=== PATIENT | male | born 1940 | race Caucasian/White ===

== ENCOUNTER 2019-03-21 08:21 | Emergency (ER) | payer MEDICARE, MEDICAID ==
[2019-03-21 08:40] VITALS: BP 98/69
--- NOTE | 2019-03-21 08:56 | EDM.PDOC ---
ED HPI GENERAL MEDICAL PROBLEM - General Chief Complaint: General Stated Complaint: LEFT SIDE FACIAL SWELLING Time Seen by Provider: 03/21/19 08:40 Source of Information: Reports: Patient History Limitations: Reports: No Limitations - History of Present Illness INITIAL COMMENTS - FREE TEXT/NARRATIVE: Patient is 79-year-old gentleman who presents to the emergency department this morning with a complaint of left scalp swelling. Patient states yesterday afternoon he had a period of dizziness and multiple episodes of vomiting. His vomiting stopped at 1600 and dizziness resolved. When he woke this morning he noticed that he had swelling to his left scalp and face. Patient states he did have a small pimple on that area of his scalp prior to symptoms, however denies fever, any trauma, known insect bite, neck stiffness, blurry vision, dizziness, headache, or throat, chest pain, or shortness of breath. Onset: Gradual Duration: Day(s): Location: Reports: Head, Face Improves with: Reports: None Worsens with: Reports: None Context: Denies: Trauma Associated Symptoms: Reports: Headaches, Nausea/Vomiting. Denies: Cough, Diaphoresis, Fever/Chills, Rash, Seizure, Shortness of Breath, Syncope Left Head Pain Score (Numeric/FACES): 8 - Related Data Allergies Allergy/AdvReac Type Severity Reaction Status Date / Time hydrocodone Allergy Nausea and Verified 03/21/19 08:41 Vomiting tramadol Allergy Nausea and Verified 03/21/19 08:41 Vomiting Home Meds: Home Meds Naproxen Sodium [Aleve] 440 mg PO DAILY 11/29/13 [History] Aspirin 325 mg PO DAILY 03/21/19 [History] Cephalexin [Keflex] 500 mg PO TID #21 capsule 03/21/19 [Rx] Magnesium Potassium 1 tab PO BID 03/21/19 [History] Metoprolol Succinate [Toprol Xl] 25 mg PO DAILY 03/21/19 [History] Social & Family History - Tobacco Use Smoking Status *Q: Never Smoker Second Hand Smoke Exposure: No - Caffeine Use Caffeine Use: Reports: Soda, Tea - Recreational Drug Use Recreational Drug Use: No - Living Situation & Occupation Living situation: Reports: Single Occupation: Retired ED ROS GENERAL - Review of Systems Review Of Systems: ROS reveals no pertinent complaints other than HPI. Constitutional: Reports: No Symptoms. Denies: Fever HEENT: Reports: No Symptoms Respiratory: Reports: No Symptoms Cardiovascular: Reports: No Symptoms Endocrine: Reports: No Symptoms GI/Abdominal: Reports: Nausea, Vomiting : Reports: No Symptoms Musculoskeletal: Reports: No Symptoms Skin: Reports: Other (Pain and swelling of the left temporal area extending into maxilla and superior aspect of ear) Neurological: Reports: Dizziness, Headache Psychiatric: Reports: No Symptoms Hematologic/Lymphatic: Reports: No Symptoms Immunologic: Reports: No Symptoms ED EXAM, GENERAL - Physical Exam Exam: See Below Exam Limited By: No Limitations General Appearance: Alert, WD/WN, No Apparent Distress Eye Exam: Bilateral Eye: Normal Inspection Ears: Normal External Exam, Normal Canal, Normal TMs Ear Exam: Bilateral Ear: Auricle Normal, Canal Normal, TM normal Nose: Normal Inspection, Normal Mucosa, No Blood Throat/Mouth: Normal Inspection, Normal Oropharynx, No Airway Compromise. No: Inflammation Head: Facial Swelling, Facial Tenderness. No: Sinus Tenderness Neck: Lymphadenopathy (L), Lymphadenopathy (R) (Submandibular) Respiratory/Chest: No Respiratory Distress, Lungs Clear, Normal Breath Sounds, No Accessory Muscle Use, Chest Non-Tender Cardiovascular: Regular Rate, Rhythm GI/Abdominal: Normal Bowel Sounds, Soft, Non-Tender Extremities: Normal Inspection Neurological: Alert, Oriented, CN II-XII Intact, Normal Cognition, No Motor/ Sensory Deficits Psychiatric: Normal Affect, Normal Mood Skin Exam: Warm, Dry, Intact, Normal Color, No Rash, Other (Isolated single excoriation at superior aspect of edema. Minimal erythema. No ecchymosis. Mild edema extending from superior aspect of left ear through temporal area and partially into upper aspect of mandible.). No: Ecchymosis, Erythema Lymphatic: Adenopathy Course - Vital Signs Last Recorded V/S: Last Vital Signs Temp 98.2 F 03/21/19 08:35 Pulse 94 03/21/19 08:35 Resp 20 03/21/19 08:35 BP 98/69 03/21/19 08:35 Pulse Ox 92 L 03/21/19 08:35 - Orders/Labs/Meds Orders: Active Orders 24 hr Category Date Time Status CBC WITH AUTO DIFF [HEME] Stat Lab 03/21/19 08:40 Ordered SEDIMENTATION RATE MANUAL [HEME] Stat Lab 03/21/19 08:40 Ordered Labs: Laboratory Tests 03/21/19 03/21/19 Range/Units 08:50 08:50 WBC 7.45 (5.00-10.00) 10^3/uL RBC 4.99 (4.50-6.00) 10^6/uL Hgb 15.8 (13.0-17.0) g/dL Hct 44.8 (40.0-52.0) % MCV 89.8 (82.0-92.0) fL MCH 31.7 H (27.0-31.0) pg MCHC 35.3 (32.0-36.0) g/dL RDW 12.6 (11.5-14.5) % Plt Count 103 L (150-400) 10^3/uL MPV 10.7 H (7.4-10.4) fL Immature Gran % (Auto) 0.5 (0.0-5.0) % Neut % (Auto) 85.8 H (50.0-70.0) % Lymph % (Auto) 5.2 L (20.0-40.0) % [place] % (Auto) 8.2 H (2.0-8.0) % Eos % (Auto) 0.0 L (1.0-3.0) % Baso % (Auto) 0.3 (0.0-1.0) % Immature Gran # (Auto) 0.04 (0.00-0.50) 10^3/uL Neut # (Auto) 6.39 (2.50-7.00) 10^3/uL Lymph # (Auto) 0.39 L (1.00-4.00) 10^3/uL [place] # (Auto) 0.61 (0.10-0.80) 10^3/uL Eos # (Auto) 0.00 L (0.10-0.30) 10^3/uL Baso # (Auto) 0.02 (0.00-0.10) 10^3/uL Sodium 131 L D (136-145) mmol/L Potassium 3.8 (3.3-5.3) mmol/L Chloride 99 (98-115) mmol/L Carbon Dioxide 23.7 (21.0-32.0) mmol/L Anion Gap 12.1 (5-15) mmol/L BUN 26 H (6-25) mg/dL Creatinine 1.09 (0.51-1.17) mg/dL Est Cr Clr Drug Dosing 61.80 mL/min Estimated GFR (MDRD) > 60 mL/min Glucose 265 H (75 - 99) mg/dL Calcium 9.0 (8.7-10.3) mg/dL Total Bilirubin 2.8 H (0.2-1.0) mg/dL AST 28 (15-37) U/L ALT 21 (12-78) U/L Alkaline Phosphatase 112 (46-116) IU/L Total Protein 7.4 (6.4-8.2) g/dL Albumin 3.59 (3.00-4.80) g/dL Meds: Medications Discontinued Medications Generic Name Dose Route Start Last Admin Trade Name Freq PRN Reason Stop Dose Admin Cephalexin 1,000 mg 03/21/19 09:42 Keflex PO 03/21/19 09:43 ONETIME ONE - Radiology Interpretation Free Text/Narrative:: CT head shows left scalp soft tissue swelling with underlying osseous structures intact, no acute intracranial findings - Re-Assessments/Exams Free Text/Narrative Re-Assessment/Exam: 03/21/19 09:38 Patient afebrile, nontoxic appearing, vital signs stable. Denies nausea, dizziness, or headache. Patient given cephalexin in ER and prescription to go. Patient will be rechecked in 24 hours at the [facility]. Departure - Departure Time of Disposition: 09:46 Disposition: Home, Self-Care 01 Condition: Good Clinical Impression: Cellulitis Qualifiers: Site of cellulitis: face Qualified Code(s): L03.211 - Cellulitis of face - Discharge Information Prescriptions: Cephalexin [Keflex] 500 mg PO TID #21 capsule Instructions: Cellulitis, Adult, [id number] Referrals: Carolyne Caba MD [Primary Care Provider] - Forms: ED Department Discharge Additional Instructions: Follow-up at [facility] with Dr. Gallo tomorrow for recheck. Return to emergency department sooner if symptoms continue or worsen - My Orders Last 24 Hours: My Active Orders 03/21/19 08:40 CBC WITH AUTO DIFF [HEME] Stat SEDIMENTATION RATE MANUAL [HEME] Stat - Assessment/Plan Last 24 Hours: My Active Orders 03/21/19 08:40 CBC WITH AUTO DIFF [HEME] Stat SEDIMENTATION RATE MANUAL [HEME] Stat Assessment:: Facial Cellulitis Plan: Recheck tomorrow at clinic
[2019-03-21 09:21] LABS: ANION GAP 12.1 mmol/L (5-15); CHLORIDE,CL 99 mmol/L (98-115); SODIUM,NA 131 mmol/L (136-145)
--- NOTE | 2019-03-21 09:31 | CT ---
[id number] CT/CT Head WO IV EXAM: NONCONTRAST HEAD CT INDICATION: Left scalp swelling. COMPARISON: None. DISCUSSION: There is left scalp soft tissue swelling with infiltrating edema/fluid in the left temporal region. The underlying osseous structures appear intact. The ventricles and sulci are normal in size and configuration. Mild multifocal white matter hypoattenuation is nonspecific, but generally ascribed to chronic small vessel ischemia. No mass effect or midline shift. No acute hemorrhage or extra-axial fluid collection. No acute territorial infarct is identified. A limited look at the orbits and paranasal sinuses is unremarkable. IMPRESSION: 1. Left scalp soft tissue swelling. No acute intracranial findings. Pablito Clarke MD 03/21/19 0930 Thank you for allowing us to participate in the care of your patient.
[2019-03-21] MEDS ORDERED: Cephalexin 250 MG Cap PO ONE (09:42)
== END 2019-03-21 09:55 | disposition home or self-care (01) ==
LOC: KA.ED 08:21
DX: H60.12 Cellulitis of left external ear (principal); L03.211 Cellulitis of face; Z79.899 Other long term (current) drug therapy; Z88.6 Allergy status to analgesic agent; Z88.8 Allergy status to other drugs, medicaments and biological substances; Z79.82 Long term (current) use of aspirin
CPT/HCPCS: 36415; 70450; 80053; 85025; 85651; 99284; 99284-25; A9270-GY

== ENCOUNTER 2019-03-22 12:15 | Inpatient (IN) | payer MEDICARE, MEDICAID ==
[2019-03-22] MEDS ORDERED: Ondansetron 4 MG/2 ML SDV IV PRN (12:22)
[2019-03-22] MEDS: ceFAZolin 1 GM Vial IVPUSH SCH ×2 (13:41→21:20)
[2019-03-22] MEDS: Sodium Chloride 0.9% 10 ML Syringe FLUSH PRN (13:42)
[2019-03-22 13:49] LABS: ANION GAP 15.7 mmol/L (5-15); CHLORIDE,CL 102 mmol/L (98-115); SODIUM,NA 139 mmol/L (136-145)
[2019-03-22] MEDS ORDERED: Acetaminophen 325 MG Tab PO SCH (14:00)
[2019-03-22] MEDS: Acetaminophen 500 MG Tab PO SCH ×2 (14:23→21:20)
[2019-03-22] MEDS: Ketorolac 30 MG/ML SDV IVPUSH PRN (17:26)
[2019-03-22] MEDS: Sodium Chloride 0.9% 1,000 ML IV SCH (18:13)
[2019-03-22] MEDS: Melatonin 3 MG Tab PO PRN (23:17)
[2019-03-23] MEDS: Ketorolac 30 MG/ML SDV IVPUSH PRN ×3 (04:28→22:56)
[2019-03-23] MEDS: Sodium Chloride 0.9% 1,000 ML IV SCH (04:30)
[2019-03-23] MEDS: ceFAZolin 1 GM Vial IVPUSH SCH ×3 (04:42→20:44)
[2019-03-23 08:04] LABS: ANION GAP 15.8 mmol/L (5-15); CHLORIDE,CL 106 mmol/L (98-115); SODIUM,NA 143 mmol/L (136-145)
[2019-03-23] MEDS: Aspirin 325 MG Tab.EC PO SCH (09:00)
[2019-03-23] MEDS ORDERED: Non-Formulary Medication 1 Each (Aspirin [Aspirin] 325 MG) PO SCH (09:00)
[2019-03-23] MEDS: Acetaminophen 500 MG Tab PO SCH ×3 (09:00→20:44)
[2019-03-23] MEDS: Metoprolol Succinate 25 MG Tab.ER PO SCH (09:00)
[2019-03-23] MEDS: Enoxaparin 40 MG/0.4 ML Syringe SUBCUT SCH (10:51)
[2019-03-23] MEDS: Sodium Chloride 0.9% 10 ML Syringe FLUSH PRN ×2 (10:57→20:44)
--- NOTE | 2019-03-23 21:56 | PCM.PN ---
- General Info Date of Service: 03/23/19 Subjective Update: Mr. Davis reports much improvement since admission in pain, warmth, and redness of L face. Denies spreading of the area as it had in the prior 24hrs. Denies fever, chills, mouth pain or lesions, inner ear pain, headache, or other complaints. Now tolerating diet well. Ambulating without difficulty. - Patient Data Vitals - Most Recent: Last Vital Signs Temp 37.1 C 03/23/19 19:00 Pulse 95 03/23/19 19:00 Resp 16 03/23/19 19:00 BP 188/62 H 03/23/19 19:00 Pulse Ox 95 03/23/19 19:00 Weight - Most Recent: 86.5 kg I&O - Last 24 Hours: Intake & Output 03/23/19 03/23/19 03/23/19 06:59 14:59 22:59 Intake Total 1150 1428 Output Total 0 Balance 1150 1428 Lab Results Last 24 Hours: Laboratory Results - last 24 hr 03/23/19 03/23/19 Range/Units 07:15 07:15 WBC 5.61 (5.00-10.00) 10^3/uL RBC 4.24 L (4.50-6.00) 10^6/uL Hgb 13.6 D (13.0-17.0) g/dL Hct 37.4 L (40.0-52.0) % MCV 88.2 (82.0-92.0) fL MCH 32.1 H (27.0-31.0) pg MCHC 36.4 H (32.0-36.0) g/dL RDW 12.8 (11.5-14.5) % Plt Count 95 L (150-400) 10^3/uL MPV 11.3 H (7.4-10.4) fL Immature Gran % (Auto) 0.2 (0.0-5.0) % Neut % (Auto) 71.3 H (50.0-70.0) % Lymph % (Auto) 13.7 L (20.0-40.0) % [place] % (Auto) 13.4 H (2.0-8.0) % Eos % (Auto) 0.9 L (1.0-3.0) % Baso % (Auto) 0.5 (0.0-1.0) % Immature Gran # (Auto) 0.01 (0.00-0.50) 10^3/uL Neut # (Auto) 4.00 (2.50-7.00) 10^3/uL Lymph # (Auto) 0.77 L (1.00-4.00) 10^3/uL [place] # (Auto) 0.75 (0.10-0.80) 10^3/uL Eos # (Auto) 0.05 L (0.10-0.30) 10^3/uL Baso # (Auto) 0.03 (0.00-0.10) 10^3/uL Sodium 143 (136-145) mmol/L Potassium 4.2 (3.3-5.3) mmol/L Chloride 106 (98-115) mmol/L Carbon Dioxide 25.4 (21.0-32.0) mmol/L Anion Gap 15.8 H (5-15) mmol/L BUN 34 H (6-25) mg/dL Creatinine 0.97 (0.51-1.17) mg/dL Est Cr Clr Drug Dosing 69.44 mL/min Estimated GFR (MDRD) > 60 mL/min Glucose 132 H (75 - 99) mg/dL Calcium 8.6 L (8.7-10.3) mg/dL Magnesium 1.9 (1.8-2.4) mg/dL Total Bilirubin 1.0 (0.2-1.0) mg/dL Direct Bilirubin 0.2 (0.0-0.2) mg/dL Indirect Bilirubin 0.8 mg/dL AST 26 (15-37) U/L ALT 25 (12-78) U/L Alkaline Phosphatase 107 (46-116) IU/L C-Reactive Protein 8.1 H (0.0-0.9) mg/dL Total Protein 5.7 L (6.4-8.2) g/dL Albumin 2.71 L (3.00-4.80) g/dL Globulin 2.99 Albumin/Globulin Ratio 0.90 Keegan Results Last 24 Hours: Microbiology 03/22/19 12:45 Aerobic Blood Culture - Preliminary Blood - Venous - Lab Draw NO GROWTH AFTER 1 DAY Anaerobic Blood Culture - Preliminary NO GROWTH AFTER 1 DAY 03/22/19 13:15 Aerobic Blood Culture - Preliminary Blood - Venous NO GROWTH AFTER 1 DAY Anaerobic Blood Culture - Preliminary NO GROWTH AFTER 1 DAY Med Orders - Current: Current Medications Acetaminophen (Tylenol Extra Strength) 1,000 mg PO TID [facility] Last Admin: 03/23/19 20:44 Dose: 1,000 mg Aspirin (Ecotrin) 325 mg PO DAILY [facility] Last Admin: 03/23/19 09:00 Dose: 325 mg Cefazolin Sodium (Ancef) 1 gm IVPUSH Q8H [facility] Last Admin: 03/23/19 20:44 Dose: 1 gm Enoxaparin Sodium (Lovenox) 40 mg SUBCUT Q24H [facility] Last Admin: 03/23/19 10:51 Dose: 40 mg Ketorolac Tromethamine (Toradol) 30 mg IVPUSH Q6H PRN PRN Reason: Pain (moderate 4-6) Last Admin: 03/23/19 10:51 Dose: 30 mg Melatonin (Melatonin) 3 mg PO BEDTIME PRN PRN Reason: Insomnia Last Admin: 03/22/19 23:17 Dose: 3 mg Metoprolol Succinate (Toprol Xl) 25 mg PO DAILY [facility] Last Admin: 03/23/19 09:00 Dose: 25 mg Ondansetron HCl (Zofran) 4 mg IV Q4H PRN PRN Reason: Nausea/Vomiting Last Admin: 03/22/19 17:26 Dose: 4 mg Sodium Chloride (Saline Flush) 10 ml FLUSH Q8HR PRN PRN Reason: keep vein open Last Admin: 03/23/19 20:44 Dose: 10 ml Discontinued Medications Cefazolin Sodium (Ancef) 1 gm IVPUSH Q8H [facility] Last Admin: 03/22/19 21:20 Dose: 1 gm Sodium Chloride (Normal Saline) 1,000 mls @ 100 mls/hr IV ASDIRECTED [facility] Last Admin: 03/23/19 04:30 Dose: 100 mls/hr - Exam Physical Findings Comments:: GENERAL: Well-appearing elderly white male lying in hospital bed in no acute distress. HEENT: Conjunctiva clear. without discharge Nares patent without discharge. Mucous membranes moist, posterior pharynx unremarkable. NECK: Supple, no masses. CV: Regular rate and rhythm, midsystolic click loudest at RUSB, no rubs or gallops. 2+ radial pulses. PULMONARY: Normal effort, clear to auscultation bilaterally, no wheezes, rales, or rhonchi. ABDOMEN: Positive bowel sounds, soft, nontender, nondistended. EXTREMITIES: No edema, cyanosis, or clubbing. MUSCULOSKELETAL: Moves all extremities well. NEUROLOGICAL: No obvious deficits. DERMATOLOGIC: L aspect of face, most notably on preauricular cheek, postauricular scalp, and lateral forehead, with redness, warmth, and tenderness to palpation, all with interval improvement since admission and with receding from lines drawn on admission. No abscess or crepitus palpated. Mild drainage. from area of abrasion on the L temporal scalp. PSYCHIATRIC: Alert, interactive, appropriate affect. - Problem List Review Problem List Initiated/Reviewed/Updated: Yes - My Orders Last 24 Hours: My Active Orders 03/22/19 22:50 Melatonin 3 mg PO BEDTIME PRN 03/23/19 05:00 ceFAZolin [Ancef] 1 gm IVPUSH Q8H 03/23/19 09:00 Aspirin [Ecotrin] 325 mg PO DAILY Metoprolol Succinate [Toprol XL] 25 mg PO DAILY 03/23/19 09:15 Enoxaparin [Lovenox] 40 mg SUBCUT Q24H 03/23/19 18:15 MISCELLANEOUS CULT [MREF] Routine - Plan Plan:: HPI summary: Mr. Davis is an 79yoM with a history notable for aortic valve replacement and MGUS who had onset of L facial redness, swelling, and pain on 03/20/19. He subsequently noted that he had a scratch on the side of his head. He was seen in the ED on 03/21/[address] head showed L scalp soft tissue swelling without other abnormalities and started on cephalexin. Despite this, the redness, swelling and pain worsened and he was evaluated in the clinic on 03/22/19 and was admitted for IV antibiotic management and close monitoring. Hospitalization problems: # Facial cellulitis: Clinical improvement and decreasing neutrophilia and CRP. No evidence of abscess, but some mild drainage from area of scratch on scalp. - Monitor blood cultures - Obtain culture from mild drainage of scalp - Continue cefazolin; consider escalation of antibiotics if any concerns arise - Continue aetaminophen 1000mg TID scheduled and Ketorolac 30mg q6h prn pain Chronic, stable conditions: # History aortic valve replacement: ASA 325mg. #HFpEF /HTN: Metoprolol succinate 25mg daily. # MGUS / thrombocytopenia: Last evaluation by hematology 2015. # B12 deficiency: No recent testing. # OA, generalized: Takes naproxen 2 tablets BID, which is currently being held given he is receiving ketorolac. Consider addition of PPI for GI protection at discharge. Hospitalization details: # FEN: D/c IVF. Electrolytes normal. Regular diet. # PPX: Enoxaparin for DVT ppx. Melatonin for delirium ppx. # Code status: DNR/DNI. # Emergency contact: DaughterSirisha. # Disposition: Continue in inpatient status with ongoing IV antibiotics and close monitoring. Anticipate discharge to home in the next 1-2 days depending on ongoing clinical improvement.
[2019-03-23] MEDS: Melatonin 3 MG Tab PO PRN (22:58)
[2019-03-23] MEDS ORDERED: Melatonin 3 MG Tab ONE (23:06)
[2019-03-24] MEDS: ceFAZolin 1 GM Vial IVPUSH SCH (05:20)
[2019-03-24] MEDS: Aspirin 325 MG Tab.EC PO SCH (08:53)
[2019-03-24] MEDS: Acetaminophen 500 MG Tab PO SCH ×3 (08:53→20:38)
[2019-03-24] MEDS: Enoxaparin 40 MG/0.4 ML Syringe SUBCUT SCH (08:53)
[2019-03-24] MEDS: Metoprolol Succinate 25 MG Tab.ER PO SCH (08:54)
--- NOTE | 2019-03-24 12:15 | PCM.PN ---
- General Info Date of Service: 03/24/19 Subjective Update: Mr. Davis reports ongoing improvement pain, warmth, and redness of L face. Has been having some drainage on the L lateral aspect of the scalp. Tolerating diet well without antiemetic in the past 24hrs. Fluid intake improving as well. Denies fever, chills, mouth pain or lesions, inner ear pain, headache, or other complaints. Ambulating without difficulty. - Patient Data Vitals - Most Recent: Last Vital Signs Temp 37.3 C 03/24/19 06:25 Pulse 59 L 03/24/19 08:54 Resp 18 03/24/19 06:25 BP 146/76 H 03/24/19 08:54 Pulse Ox 93 L 03/24/19 07:35 Weight - Most Recent: 86.5 kg I&O - Last 24 Hours: Intake & Output 03/23/19 03/24/19 03/24/19 22:59 06:59 14:59 Intake Total 150 300 Balance 150 300 Keegan Results Last 24 Hours: Microbiology 03/22/19 12:45 Aerobic Blood Culture - Preliminary Blood - Venous - Lab Draw NO GROWTH AFTER 1 DAY Anaerobic Blood Culture - Preliminary NO GROWTH AFTER 1 DAY 03/22/19 13:15 Aerobic Blood Culture - Preliminary Blood - Venous NO GROWTH AFTER 1 DAY Anaerobic Blood Culture - Preliminary NO GROWTH AFTER 1 DAY Med Orders - Current: Current Medications Acetaminophen (Tylenol Extra Strength) 1,000 mg PO TID [facility] Last Admin: 03/24/19 08:53 Dose: 1,000 mg Amoxicillin/Clavulanate Potassium (Augmentin 875 Mg/125 Mg) 1 tab PO BID [facility] Aspirin (Ecotrin) 325 mg PO DAILY [facility] Last Admin: 03/24/19 08:53 Dose: 325 mg Enoxaparin Sodium (Lovenox) 40 mg SUBCUT Q24H [facility] Last Admin: 03/24/19 08:53 Dose: 40 mg Ketorolac Tromethamine (Toradol) 30 mg IVPUSH Q6H PRN PRN Reason: Pain (moderate 4-6) Stop: 03/24/19 21:00 Last Admin: 03/23/19 22:56 Dose: 30 mg Melatonin (Melatonin) 3 mg PO BEDTIME PRN PRN Reason: Insomnia Last Admin: 03/23/19 22:58 Dose: 3 mg Metoprolol Succinate (Toprol Xl) 25 mg PO DAILY [facility] Last Admin: 03/24/19 08:54 Dose: 25 mg Non-Formulary Medication (Naproxen Sodium [Aleve]) 440 mg PO BID [facility] Omeprazole (Omeprazole) 20 mg PO ACBREAKFAST [facility] Ondansetron HCl (Zofran) 4 mg IV Q4H PRN PRN Reason: Nausea/Vomiting Last Admin: 03/22/19 17:26 Dose: 4 mg Sodium Chloride (Saline Flush) 10 ml FLUSH Q8HR PRN PRN Reason: keep vein open Last Admin: 03/23/19 20:44 Dose: 10 ml Trimethoprim/Sulfamethoxazole (Septra Ds) 1 tab PO BID [facility] Discontinued Medications Cefazolin Sodium (Ancef) 1 gm IVPUSH Q8H [facility] Last Admin: 03/22/19 21:20 Dose: 1 gm Cefazolin Sodium (Ancef) 1 gm IVPUSH Q8H [facility] Last Admin: 03/24/19 05:20 Dose: 1 gm Sodium Chloride (Normal Saline) 1,000 mls @ 100 mls/hr IV ASDIRECTED [facility] Last Admin: 03/23/19 04:30 Dose: 100 mls/hr Melatonin (Melatonin) Confirm Administered Dose 3 mg .ROUTE .Vivocha-MED ONE Stop: 03/23/19 23:07 Last Admin: 03/24/19 00:10 Dose: Not Given - Exam Physical Findings Comments:: GENERAL: Well-appearing elderly white male sitting on edge of hospital bed in no acute distress. HEENT: Conjunctiva clear. without discharge Nares patent without discharge. Mucous membranes moist, posterior pharynx unremarkable. NECK: Supple, no masses. CV: Regular rate and rhythm, midsystolic click loudest at RUSB, no rubs or gallops. 2+ radial pulses. PULMONARY: Normal effort, clear to auscultation bilaterally, no wheezes, rales, or rhonchi. ABDOMEN: Positive bowel sounds, soft, nontender, nondistended. EXTREMITIES: No edema, cyanosis, or clubbing. MUSCULOSKELETAL: Moves all extremities well. NEUROLOGICAL: No obvious deficits. DERMATOLOGIC: L aspect of face, most notably on preauricular cheek, postauricular scalp, and lateral forehead, with redness, though interval improvement since admission and with no warmth or notable edema and no extension from lines drawn on admission. No abscess or crepitus palpated. Mild drainage from area of abrasion on the L postauricular scalp. PSYCHIATRIC: Alert, interactive, appropriate affect. - Problem List Review Problem List Initiated/Reviewed/Updated: Yes - My Orders Last 24 Hours: My Active Orders 03/23/19 18:15 MISCELLANEOUS CULT [MREF] Routine 03/24/19 12:11 VITAMIN B12 [REF] Routine 03/24/19 12:15 Amoxicillin/Clavulanate K [Augmentin 875 MG/125 MG] 1 tab PO BID Sulfamethoxazole/Trimethoprim [Septra DS] 1 tab PO BID 03/24/19 21:00 Naproxen Sodium [Aleve] 440 mg PO BID 03/25/19 05:11 C-REACTIVE PROTEIN [CHEM] AM CBC WITH AUTO DIFF [HEME] AM 03/25/19 07:30 Omeprazole 20 mg PO ACBREAKFAST - Plan Plan:: HPI summary: Mr. Davis is a very pleasant 79yoM with a history notable for aortic valve replacement and MGUS who had onset of L facial redness, swelling, and pain on 03/20/19. He subsequently noted that he had a scratch on the side of his head. He was seen in the ED on 03/21/[address] head showed L scalp soft tissue swelling without other abnormalities and started on cephalexin. Despite this, the redness , swelling and pain worsened and he was evaluated in the clinic on 03/22/19 and was admitted for IV antibiotic management and close monitoring. Hospitalization problems: # Facial cellulitis: Clinical improvement with decreasing neutrophilia and CRP noted on 03/23/19. No evidence of abscess, but some mild drainage from area of scratch on scalp. - Monitor blood cultures (currently no growth x1 day) and wound culture - Discontinue cefazolin after afternoon dose - Start Augmentin and Bactrim tonight now that tolerating oral diet and to ensure ongoing improvement on oral regimen to safely discharge on - Continue acetaminophen 1000mg TID scheduled - Discontinue ketorolac 30mg q6h prn pain and restart home regimen of naproxen 440mg BID along with GI protection using omeprazole 20mg daily Chronic, stable conditions: # History aortic valve replacement: ASA 325mg. #HFpEF /HTN: Metoprolol succinate 25mg daily. # MGUS / thrombocytopenia: Last evaluation by hematology 2015. # B12 deficiency: No recent testing. Repeat level pending. # OA, generalized: Naproxen 440mg BID, along with GI protection using omeprazole 20mg daily. Hospitalization details: # FEN: No IVF. Electrolytes normal. Regular diet. # PPX: Enoxaparin for DVT ppx. Melatonin for delirium ppx. # Code status: DNR/DNI. # Emergency contact: DaughterSirisha. # Disposition: Continue in inpatient status with with transition to oral antibiotics and close monitoring to ensure ongoing improvement and ability to discharge home safely, likely tomorrow.
[2019-03-24] MEDS: Sulfamethoxazole/Trimethoprim 800-160 MG Tab PO SCH ×2 (12:25→20:38)
[2019-03-24] MEDS: Amoxicillin/Clavulanate K 875-125 MG Tab PO SCH ×2 (12:25→20:38)
[2019-03-25 06:13] VITALS: BP 143/79
[2019-03-25] MEDS ORDERED: Omeprazole 20 MG Cap.CR PO SCH (07:30)
[2019-03-25] MEDS: Amoxicillin/Clavulanate K 875-125 MG Tab PO SCH (08:30)
[2019-03-25] MEDS: Sulfamethoxazole/Trimethoprim 800-160 MG Tab PO SCH (08:30)
[2019-03-25] MEDS: Acetaminophen 500 MG Tab PO SCH (08:30)
[2019-03-25] MEDS: Aspirin 325 MG Tab.EC PO SCH (08:30)
[2019-03-25] MEDS: Metoprolol Succinate 25 MG Tab.ER PO SCH (08:31)
--- NOTE | 2019-03-25 10:44 | PCM.DCSUM1 ---
Discharge Summary - Hospital Course Free Text/Narrative:: Date of admission: 03/22/19 Date of discharge: 03/25/19 Admission diagnoses: # Facial cellulitis # History aortic valve replacement #HFpEF # HTN # MGUS # Chronic thrombocytopenia # B12 deficienc # OA, generalized Discharge diagnoses: # Facial cellulitis, improving # History aortic valve replacement #HFpEF # HTN # MGUS # Chronic thrombocytopenia # B12 deficienc # OA, generalized Hospital course: Mr. Davis is a very pleasant 79yoM with a history notable for aortic valve replacement and MGUS who had onset of L facial redness, swelling, and pain on 03/20/19. He subsequently noted that he had a scratch on the side of his head. He was seen in the ED on 03/21/[address] head showed L scalp soft tissue swelling without other abnormalities and started on cephalexin. Despite this, the redness , swelling and pain worsened and he was evaluated in the clinic on 03/22/19 and was admitted for IV antibiotic management and close monitoring. He was initially started on cefazolin and later swtiched to Augmentin and Bactrim. He received pain management with ketorolac and acetaminophen. He had excellent clinical improvement throughout his stay with decreasing neutrophilia and CRP noted on 03/23/19. No evidence of abscess, but some mild drainage from area of scratch on scalp which was cultured and pending. Due to ongoing improvement, he was deemed ready for discharge back to home. Follow-up with me in 5-7 days for recheck. Counseled on antibiotic adverse effects. He was continued on other medications for chronic medical conditions, as detailed below: # History aortic valve replacement: ASA 325mg. #HFpEF /HTN: Metoprolol succinate 25mg daily. # MGUS / thrombocytopenia: Last evaluation by hematology 2015. # B12 deficiency: No recent testing. Repeat level pending. # OA, generalized: Naproxen 440mg BID, along with GI protection using omeprazole 20mg daily. - Discharge Data Discharge Date: 03/25/19 Discharge Disposition: Home, Self-Care 01 Condition: Good - Patient Instructions Diet: Usual Diet as Tolerated Activity: As Tolerated Showering/Bathing: May Shower Notify Provider of: Fever (temperature >100.4), Increased Pain, Swelling and Redness (worsening), Drainage (worsening), Nausea and/or Vomiting - Discharge Plan *PRESCRIPTION DRUG MONITORING PROGRAM REVIEWED*: Not Applicable *COPY OF PRESCRIPTION DRUG MONITORING REPORT IN PATIENT EILEEN: Not Applicable Prescriptions/Med Rec: Amoxicillin/Clavulanate K [Augmentin 875-125 MG] 1 tab PO BID 5 Days #10 tablet Omeprazole 20 mg PO ACBREAKFAST #30 cap.cr Sulfamethoxazole/Trimethoprim [Septra DS] 1 tab PO BID 5 Days #10 tablet Home Medications: Home Meds Naproxen Sodium [Aleve] 440 mg PO BID 11/29/13 [History] Aspirin 325 mg PO DAILY 03/21/19 [History] Magnesium Potassium 1 tab PO BID 03/21/19 [History] Metoprolol Succinate [Toprol Xl] 25 mg PO DAILY 03/21/19 [History] Acetaminophen [Tylenol Extra Strength] 1,000 mg PO TID PRN tablet 03/25/19 [Rx] Amoxicillin/Clavulanate K [Augmentin 875-125 MG] 1 tab PO BID 5 Days #10 tablet 03/25/19 [Rx] Omeprazole 20 mg PO ACBREAKFAST #30 cap.cr 03/25/19 [Rx] Sulfamethoxazole/Trimethoprim [Septra DS] 1 tab PO BID 5 Days #10 tablet [Rx] Referrals: Temitope Rincon MD [Physician] - (03/29 or 03/30) - Discharge Summary/Plan Comment DC Time >30 min.: Yes - General Info Subjective Update: Mr. Davis reports ongoing improvement pain, warmth, and redness of L face. Has had some ongoing drainage on the L lateral aspect of the scalp. Tolerating diet well. Fluid intake at baseline. Denies fever, chills, mouth pain or lesions, inner ear pain, headache, or other complaints. Ambulating without difficulty. - Patient Data Vitals - Most Recent: Last Vital Signs Temp 36.9 C 03/25/19 06:13 Pulse 64 03/25/19 08:31 Resp 18 03/25/19 06:13 BP 143/79 H 03/25/19 08:31 Pulse Ox 93 L 03/25/19 07:10 Weight - Most Recent: 86.5 kg I&O - Last 24 hours: Intake & Output 03/24/19 03/25/19 03/25/19 22:59 06:59 14:59 Intake Total 220 Balance 220 Lab Results - Last 24 hrs: Laboratory Results - last 24 hr 03/25/19 03/25/19 Range/Units 07:45 07:45 WBC 4.10 L (5.00-10.00) 10^3/uL RBC 4.41 L (4.50-6.00) 10^6/uL Hgb 14.0 (13.0-17.0) g/dL Hct 38.5 L (40.0-52.0) % MCV 87.3 (82.0-92.0) fL MCH 31.7 H (27.0-31.0) pg MCHC 36.4 H (32.0-36.0) g/dL RDW 12.3 (11.5-14.5) % Plt Count 132 L (150-400) 10^3/uL MPV 10.2 (7.4-10.4) fL Immature Gran % (Auto) 0.5 (0.0-5.0) % Neut % (Auto) 63.2 (50.0-70.0) % Lymph % (Auto) 23.9 (20.0-40.0) % [place] % (Auto) 9.0 H (2.0-8.0) % Eos % (Auto) 2.7 (1.0-3.0) % Baso % (Auto) 0.7 (0.0-1.0) % Immature Gran # (Auto) 0.02 (0.00-0.50) 10^3/uL Neut # (Auto) 2.59 (2.50-7.00) 10^3/uL Lymph # (Auto) 0.98 L (1.00-4.00) 10^3/uL [place] # (Auto) 0.37 (0.10-0.80) 10^3/uL Eos # (Auto) 0.11 (0.10-0.30) 10^3/uL Baso # (Auto) 0.03 (0.00-0.10) 10^3/uL C-Reactive Protein 2.1 H (0.0-0.9) mg/dL ZHEN Results - Last 24 hrs: Microbiology 03/22/19 12:45 Aerobic Blood Culture - Preliminary Blood - Venous - Lab Draw NO GROWTH AFTER 2 DAYS Anaerobic Blood Culture - Preliminary NO GROWTH AFTER 2 DAYS 03/22/19 13:15 Aerobic Blood Culture - Preliminary Blood - Venous NO GROWTH AFTER 2 DAYS Anaerobic Blood Culture - Preliminary NO GROWTH AFTER 2 DAYS Med Orders - Current: Current Medications Acetaminophen (Tylenol Extra Strength) 1,000 mg PO TID [facility] Last Admin: 03/25/19 08:30 Dose: 1,000 mg Amoxicillin/Clavulanate Potassium (Augmentin 875 Mg/125 Mg) 1 tab PO BID [facility] Last Admin: 03/25/19 08:30 Dose: 1 tab Aspirin (Ecotrin) 325 mg PO DAILY [facility] Last Admin: 03/25/19 08:30 Dose: 325 mg Enoxaparin Sodium (Lovenox) 40 mg SUBCUT Q24H [facility] Last Admin: 03/24/19 08:53 Dose: 40 mg Melatonin (Melatonin) 3 mg PO BEDTIME PRN PRN Reason: Insomnia Last Admin: 03/23/19 22:58 Dose: 3 mg Metoprolol Succinate (Toprol Xl) 25 mg PO DAILY [facility] Last Admin: 03/25/19 08:31 Dose: 25 mg Naproxen (Naproxen Sodium) 440 mg PO BID [facility] Last Admin: 03/25/19 08:30 Dose: 440 mg Omeprazole (Omeprazole) 20 mg PO ACBREAKFAST [facility] Last Admin: 03/25/19 07:39 Dose: 20 mg Ondansetron HCl (Zofran) 4 mg IV Q4H PRN PRN Reason: Nausea/Vomiting Last Admin: 03/22/19 17:26 Dose: 4 mg Sodium Chloride (Saline Flush) 10 ml FLUSH Q8HR PRN PRN Reason: keep vein open Last Admin: 03/23/19 20:44 Dose: 10 ml Trimethoprim/Sulfamethoxazole (Septra Ds) 1 tab PO BID [facility] Last Admin: 03/25/19 08:30 Dose: 1 tab Discontinued Medications Cefazolin Sodium (Ancef) 1 gm IVPUSH Q8H [facility] Last Admin: 03/22/19 21:20 Dose: 1 gm Cefazolin Sodium (Ancef) 1 gm IVPUSH Q8H [facility] Last Admin: 03/24/19 05:20 Dose: 1 gm Sodium Chloride (Normal Saline) 1,000 mls @ 100 mls/hr IV ASDIRECTED [facility] Last Admin: 03/23/19 04:30 Dose: 100 mls/hr Ketorolac Tromethamine (Toradol) 30 mg IVPUSH Q6H PRN PRN Reason: Pain (moderate 4-6) Stop: 03/24/19 21:00 Last Admin: 03/23/19 22:56 Dose: 30 mg Melatonin (Melatonin) Confirm Administered Dose 3 mg .ROUTE .STK-MED ONE Stop: 03/23/19 23:07 Last Admin: 03/24/19 00:10 Dose: Not Given - Exam Physical Findings Comments:: GENERAL: Well-appearing elderly white male sitting on edge of hospital bed in no acute distress. HEENT: Conjunctiva clear. without discharge Nares patent without discharge. Mucous membranes moist, posterior pharynx unremarkable. NECK: Supple, no masses. CV: Regular rate and rhythm, midsystolic click loudest at RUSB, no rubs or gallops. 2+ radial pulses. PULMONARY: Normal effort, clear to auscultation bilaterally, no wheezes, rales, or rhonchi. ABDOMEN: Positive bowel sounds, soft, nontender, nondistended. EXTREMITIES: No edema, cyanosis, or clubbing. MUSCULOSKELETAL: Moves all extremities well. NEUROLOGICAL: No obvious deficits. DERMATOLOGIC: L aspect of face, most notably on preauricular cheek, postauricular scalp, and lateral forehead, with interval improvement since admission and with no warmth or notable edema and no extension from lines drawn on admission. No abscess or crepitus palpated. Mild drainage from area of abrasion on the L postauricular scalp. PSYCHIATRIC: Alert, interactive, appropriate affect.
== END 2019-03-25 12:30 | disposition home or self-care (01) | DRG 603 ==
LOC: KA.MS 12:15
PROVIDERS: ADMIT Family Medicine; ATTEND Family Medicine
DX: L03.211 Cellulitis of face (principal); I50.32 Chronic diastolic (congestive) heart failure; I11.0 Hypertensive heart disease with heart failure; D69.6 Thrombocytopenia, unspecified; E53.8 Deficiency of other specified B group vitamins; Z66 Do not resuscitate; H40.9 Unspecified glaucoma; D47.2 Monoclonal gammopathy; M15.9 Polyosteoarthritis, unspecified; Z86.718 Personal history of other venous thrombosis and embolism; Z90.49 Acquired absence of other specified parts of digestive tract; Z79.82 Long term (current) use of aspirin; Z79.899 Other long term (current) drug therapy; Z95.2 Presence of prosthetic heart valve; Z88.5 Allergy status to narcotic agent
CPT/HCPCS: 36415; 80048; 80053; 80076; 82607; 83735; 85025; 85651; 86140; 87040; 87070; 87205; A9270-GY; J0690; J1650; J1885; J2405; J7030

== ENCOUNTER 2019-08-14 09:35 | Emergency (ER) | payer MEDICAID, MEDICARE, OTHER ==
[2019-08-14 09:46] VITALS: BP 157/73; PULSE 78
--- NOTE | 2019-08-14 10:25 | EDM.PDOC ---
ED HPI GENERAL MEDICAL PROBLEM - General Chief Complaint: General Stated Complaint: BACK PAIN Time Seen by Provider: 08/14/19 10:00 Source of Information: Reports: Patient History Limitations: Reports: No Limitations - History of Present Illness INITIAL COMMENTS - FREE TEXT/NARRATIVE: 79 YO WM presents to ER complaining of right sided low back pain with radiation to right hip and thigh after missing a step in his garage and landing awkwardly. Pt denies falling or hitting the ground. Pt reports injury occurred 5 days ago. Pt was seen by his chiropractor 2 days ago and had an adjustment. Pt states he woke this am with worsening pain prompting ER evaluation. Pt denies weakness or numbness. Pt denies bowel or bladder dysfunction. Pt denies saddle paraesthesias. Duration: Day(s): (5) Location: Reports: Back, Lower Extremity, Right Quality: Reports: Ache Severity: Moderate Improves with: Reports: Rest Worsens with: Reports: Movement Associated Symptoms: Reports: No Other Symptoms. 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: Cold Therapy, NSAIDS Right Hip Pain Score (Numeric/FACES): 8 - Related Data Allergies Allergy/AdvReac Type Severity Reaction Status Date / Time hydrocodone Allergy Nausea and Verified 08/14/19 09:46 Vomiting tramadol Allergy Nausea and Verified 08/14/19 09:46 Vomiting Home Meds: Home Meds Naproxen Sodium [Aleve] 440 mg PO BID 11/29/13 [History] Aspirin 325 mg PO DAILY 03/21/19 [History] Magnesium Potassium 1 tab PO BID 03/21/19 [History] Metoprolol Succinate [Toprol Xl] 25 mg PO DAILY 03/21/19 [History] Omeprazole 20 mg PO ACBREAKFAST #30 cap.cr 03/25/19 [Rx] Cyclobenzaprine [Flexeril] 10 mg PO BEDTIME PRN #10 tab 08/14/19 [Rx] Hydrocodone/Acetaminophen [Hydrocodon-Acetaminophn 10-325] 1 each PO Q6HR PRN # 10 tablet 08/14/19 [Rx] predniSONE [Prednisone] 50 mg PO DAILY #5 tablet 08/14/19 [Rx] Past Medical History HEENT History: Reports: None Cardiovascular History: Reports: Heart Valve Replacement Respiratory History: Reports: None Gastrointestinal History: Reports: Bowel Obstruction Genitourinary History: Reports: None Musculoskeletal History: Reports: Arthritis, Fracture Neurological History: Reports: None Psychiatric History: Reports: None Endocrine/Metabolic History: Reports: None Hematologic History: Reports: None Immunologic History: Reports: None Oncologic (Cancer) History: Reports: None Dermatologic History: Reports: None - Infectious Disease History Infectious Disease History: Reports: Chicken Pox - Past Surgical History Head Surgeries/Procedures: Reports: None HEENT Surgical History: Reports: None Cardiovascular Surgical History: Reports: Valve Replacement Respiratory Surgical History: Reports: None GI Surgical History: Reports: Appendectomy, Cholecystectomy, Colonoscopy, Hernia Repair/Other, Other (See Below) Other GI Surgeries/Procedures: colon resection Male Surgical History: Reports: None Endocrine Surgical History: Reports: None Neurological Surgical History: Reports: None Musculoskeletal Surgical History: Reports: Shoulder Surgery Oncologic Surgical History: Reports: None Dermatological Surgical History: Reports: None Social & Family History - Family History Family Medical History: Noncontributory - Tobacco Use Smoking Status *Q: Never Smoker Second Hand Smoke Exposure: No - Caffeine Use Caffeine Use: Reports: Soda, Tea - Recreational Drug Use Recreational Drug Use: No - Living Situation & Occupation Living situation: Reports: Single Occupation: Retired ED ROS GENERAL - Review of Systems Review Of Systems: See Below Constitutional: Reports: No Symptoms HEENT: Reports: No Symptoms Respiratory: Reports: No Symptoms Cardiovascular: Reports: No Symptoms Endocrine: Reports: No Symptoms GI/Abdominal: Reports: No Symptoms : Reports: No Symptoms Musculoskeletal: Reports: Back Pain, Leg Pain Skin: Reports: No Symptoms Neurological: Reports: No Symptoms Psychiatric: Reports: No Symptoms Hematologic/Lymphatic: Reports: No Symptoms Immunologic: Reports: No Symptoms ED EXAM, GENERAL - Physical Exam Exam: See Below Exam Limited By: No Limitations General Appearance: Alert, WD/WN, No Apparent Distress Throat/Mouth: Normal Inspection, Normal Lips, Normal Teeth, Normal Gums, Normal Oropharynx, Normal Voice, No Airway Compromise Head: Atraumatic, Normocephalic Neck: Normal Inspection, Supple, Non-Tender, Full Range of Motion Respiratory/Chest: No Respiratory Distress, Lungs Clear, Normal Breath Sounds, No Accessory Muscle Use, Chest Non-Tender Cardiovascular: Normal Peripheral Pulses, Regular Rate, Rhythm, No Edema, No Gallop, No JVD, No Murmur, No Rub GI/Abdominal: Normal Bowel Sounds, Soft, Non-Tender, No Organomegaly, No Distention, No Abnormal Bruit, No Mass Back Exam: Decreased Range of Motion, Muscle Spasm, Paraspinal Tenderness Extremities: Normal Range of Motion, No Pedal Edema, Normal Capillary Refill, Leg Pain Neurological: Alert, Oriented, CN II-XII Intact, Normal Cognition, Normal Gait, Normal Reflexes, No Motor/Sensory Deficits Psychiatric: Normal Affect, Normal Mood Skin Exam: Warm, Dry, Intact, Normal Color, No Rash Lymphatic: No Adenopathy Course - Vital Signs Last Recorded V/S: Last Vital Signs Temp 36.3 C 08/14/19 09:40 Pulse 78 08/14/19 09:40 Resp 20 08/14/19 09:40 BP 157/73 H 08/14/19 09:40 Pulse Ox 94 L 08/14/19 09:40 - Orders/Labs/Meds Orders: Active Orders 24 hr Category Date Time Status Hip Min 2V or 3V Rt [CR] Stat Exams 08/14/19 10:26 Ordered Meds: Medications Discontinued Medications Generic Name Dose Route Start Last Admin Trade Name Freq PRN Reason Stop Dose Admin Ketorolac Tromethamine 30 mg 08/14/19 10:26 08/14/19 11:39 Toradol IVPUSH 08/14/19 10:27 30 mg ONETIME ONE Administration Lorazepam 1 mg 08/14/19 10:08/14/19 11:39 Ativan IVPUSH 08/14/19 10:27 1 mg ONETIME ONE Administration Methylprednisolone Sodium Succinate 125 mg 08/14/19 10:08/14/19 11:39 Solu-Medrol IVPUSH 08/14/19 10:27 125 mg ONETIME ONE Administration - Radiology Interpretation Free Text/Narrative:: right hip- NAD right femur- NAD Departure - Departure Time of Disposition: 11:00 Disposition: Home, Self-Care 01 Condition: Good Clinical Impression: Sciatica Qualifiers: Laterality: right Qualified Code(s): M54.31 - Sciatica, right side - Discharge Information Prescriptions: Hydrocodone/Acetaminophen [Hydrocodon-Acetaminophn 10-325] 1 each PO Q6HR PRN # 10 tablet PRN Reason: Pain Cyclobenzaprine [Flexeril] 10 mg PO BEDTIME PRN #10 tab PRN Reason: Muscle Spasm predniSONE [Prednisone] 50 mg PO DAILY #5 tablet Instructions: Sciatica, [id number] Referrals: Temitope Rincon MD [Physician] - Forms: ED Department Discharge Additional Instructions: 1. discharge home 2. prednisone 50mg once a day x 5 days 3. hydrocodone 10/325 every 4-6 hours as needed for pain #10 4. flexeril 10mg at bedtime as needed for pain #10 5. follow up in clinic for recheck next week 6. return to ER for worsening symptoms - My Orders Last 24 Hours: My Active Orders 08/14/19 10:26 Hip Min 2V or 3V Rt [CR] Stat - Assessment/Plan Last 24 Hours: My Active Orders 08/14/19 10:26 Hip Min 2V or 3V Rt [CR] Stat Assessment:: 1. right acute sciatica Plan: 1. discharge home 2. prednisone 50mg once a day x 5 days 3. hydrocodone 10/325 every 4-6 hours as needed for pain #10 4. flexeril 10mg at bedtime as needed for pain #10 5. follow up in clinic for recheck next week 6. return to ER for worsening symptoms
--- NOTE | 2019-08-14 11:24 | CR ---
[id number] RAD/RAD Hip Right 2-3V; [id number] RAD/RAD Femur Right 2V Exam: RAD Hip Right 2-3V, RAD Femur Right 2V Indication:PAIN. Comparison: CT from 2013. 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 No radiographically evident fracture or dislocation. No AVN. No evidence of a femur fracture. Advanced changes of osteophytosis in the knee. Impression: No acute findings. Other findings are described above. John Rees MD 08/14/19 1123 Thank you for allowing us to participate in the care of your patient.
[2019-08-14] MEDS: methylPREDNISolone Sodium Succinate 125 MG/2 ML SDV IVPUSH ONE (11:39)
[2019-08-14] MEDS: LORazepam 2 MG/ML SDV IVPUSH ONE (11:39)
[2019-08-14] MEDS: Ketorolac 30 MG/ML SDV IVPUSH ONE (11:39)
== END 2019-08-14 12:10 | disposition home or self-care (01) ==
LOC: KA.ED 09:35
DX: M54.41 Lumbago with sciatica, right side (principal)
CPT/HCPCS: 73552; 96374; 96375; 99283; J1885; J2060; J2930

== ENCOUNTER 2022-03-22 09:15 | Emergency (ER) | payer MEDICARE, SELFPAY ==
[2022-03-22 09:59] LABS: ANION GAP 14.2 mmol/L (5-15); CHLORIDE,CL 102 mmol/L (98-107); SODIUM,NA 138 mmol/L (136-145)
[2022-03-22] MEDS ORDERED: Iopamidol 755 Mg/ML 75 ML Bottle IVPUSH ONE (11:12)
[2022-03-22] MEDS ORDERED: Sodium Chloride 0.9% 100 ML IV SCH (11:15)
[2022-03-22 11:19] LABS: CORONAVIRUS COVID-19 NAA NEGATIVE (NEGATIVE)
[2022-03-22] MEDS ORDERED: Heparin Sodium 5,000 Units/ML Vial IVPUSH ONE (12:09)
[2022-03-22] MEDS ORDERED: Heparin Sodium 5,000 Units/ML Vial ONE (12:13)
[2022-03-22] MEDS ORDERED: Heparin Sodium/D5W 250 ML IV SCH (12:15)
[2022-03-22 15:16] VITALS: BP 147/86; PULSE 91
== END 2022-03-22 15:00 ==
LOC: KA.ED 09:15
DX: I26.99 Other pulmonary embolism without acute cor pulmonale (principal); R09.02 Hypoxemia; R06.82 Tachypnea, not elsewhere classified; Z90.49 Acquired absence of other specified parts of digestive tract; Z79.899 Other long term (current) drug therapy; Z79.82 Long term (current) use of aspirin; Z88.5 Allergy status to narcotic agent; Z20.822 Contact with and (suspected) exposure to COVID-19
CPT/HCPCS: 0240U; 36415; 71045; 71275; 80048; 83605; 83880; 84484; 85025; 85379; 93005; 93010; 96365; 96366; 96376; 99284; 99285-25; J1644; Q9967

== ENCOUNTER 2022-08-30 20:40 | Emergency (ER) | payer MEDICARE ==
[~2022-08-30 20:40] MED LIST: Sodium Chloride 0.9% 10 ML Syringe IV PRN
[2022-08-30] MEDS ORDERED: Ondansetron 4 MG/2 ML SDV IVPUSH ONE (21:10)
[2022-08-30] MEDS ORDERED: Sodium Chloride 0.9% 1,000 ML IV ONE (21:19)
[2022-09-16 09:12] LABS: ANION GAP 11.9 mmol/L (5-15); CHLORIDE,CL 101 mmol/L (98-115); SODIUM,NA 137 mmol/L (136-145)
[2022-09-16 09:13] LABS: ESTIMATED GFR 69 mL/min (>=60)
== END 2022-08-30 22:34 | disposition home or self-care (01) ==
LOC: KA.ED 20:40
DX: A08.4 Viral intestinal infection, unspecified (principal); R73.9 Hyperglycemia, unspecified; Z88.5 Allergy status to narcotic agent
CPT/HCPCS: 36415; 80053; 83690; 85025; 96374; 99284; J2405; J7030

== ENCOUNTER 2022-09-01 17:45 | Inpatient (IN) | payer MEDICARE ==
[2022-09-01] MEDS ORDERED: Iopamidol 755 Mg/ML 75 ML Bottle IV ONE (18:38)
[2022-09-01] MEDS ORDERED: Sodium Chloride 0.9% 50 ML IV ONE (18:38)
[2022-09-01] MEDS ORDERED: Sodium Chloride 0.9% 1,000 ML IV ONE (18:47)
[2022-09-01] MEDS ORDERED: Ondansetron 4 MG/2 ML SDV IV ONE (18:52)
[2022-09-01] MEDS ORDERED: Morphine 4 MG/ML Syringe IV ONE (18:56)
[2022-09-01] MEDS ORDERED: Sodium Chloride 0.9% 1,000 ML IV SCH (19:40)
[2022-09-02] MEDS ORDERED: Morphine 2 MG/ML SYRINGE IVPUSH PRN
[2022-09-02] MEDS ORDERED: Enoxaparin 40 MG/0.4 ML Syringe SUBCUT SCH (10:00)
[2022-09-02] MEDS ORDERED: Pantoprazole 40 MG Vial IV SCH (10:00)
[2022-09-02] MEDS ORDERED: Ondansetron 4 MG/2 ML SDV IVPUSH PRN (20:00)
[2022-09-03] MEDS ORDERED: Pantoprazole 40 MG Vial IV ONE (08:33)
[2022-09-03] MEDS ORDERED: Enoxaparin 40 MG/0.4 ML Syringe SUBCUT ONE (10:48)
[2022-09-03] MEDS ORDERED: Magnesium Sulfate/Water 2 GM in Premix Bag 1 BAG IV ONE (12:37)
[2022-09-03] MEDS ORDERED: Morphine 2 MG/ML SYRINGE IVPUSH PRN (14:25)
[2022-09-03] MEDS ORDERED: Ondansetron 4 MG/2 ML SDV IVPUSH PRN (14:26)
[2022-09-03] MEDS ORDERED: Sodium Chloride 0.9% 10 ML Syringe FLUSH PRN (14:33)
[2022-09-03] MEDS ORDERED: Phenol 1.4% Oral Spray 177 ML Bottle MUCMEM PRN (14:37)
[2022-09-03] MEDS: Sodium Chloride 0.9% 1,000 ML IV SCH (23:26)
[2022-09-04 07:51] LABS: ANION GAP 13.6 mmol/L (5-15); CHLORIDE,CL 102 mmol/L (98-107); SODIUM,NA 137 mmol/L (136-145)
[2022-09-04 07:52] LABS: ESTIMATED GFR 85 mL/min (>=60)
[2022-09-04] MEDS: Pantoprazole 40 MG Vial IV SCH (08:35)
[2022-09-04] MEDS ORDERED: Pantoprazole 20 MG in Sodium Chloride 0.9% 100 ML IV ONE (09:00)
[2022-09-04] MEDS: Enoxaparin 40 MG/0.4 ML Syringe SUBCUT SCH (10:28)
[2022-09-04] MEDS: Sodium Chloride 0.9% 1,000 ML IV SCH ×2 (10:37→20:49)
[2022-09-04] MEDS ORDERED: Melatonin 3 MG Tab PO PRN (19:48)
[2022-09-04] MEDS: Magnesium Oxide 500 MG Tab PO SCH (20:45)
[2022-09-05] MEDS: Sodium Chloride 0.9% 1,000 ML IV SCH ×3 (07:12→21:56)
[2022-09-05 08:00] LABS: ANION GAP 11.4 mmol/L (5-15); CHLORIDE,CL 104 mmol/L (98-107); SODIUM,NA 139 mmol/L (136-145)
[2022-09-05 08:02] LABS: ESTIMATED GFR 86 mL/min (>=60)
[2022-09-05] MEDS: Pantoprazole 40 MG Vial IV SCH (08:33)
[2022-09-05] MEDS: Magnesium Oxide 500 MG Tab PO SCH ×2 (08:33→21:54)
[2022-09-05] MEDS: Enoxaparin 40 MG/0.4 ML Syringe SUBCUT SCH (11:13)
[2022-09-05] MEDS: Acetaminophen 500 MG Tab PO SCH (21:55)
[2022-09-06] MEDS ORDERED: Pantoprazole 20 MG Tab, Delayed Release PO SCH (07:30)
[2022-09-06 07:41] LABS: ANION GAP 10.4 mmol/L (5-15); CHLORIDE,CL 106 mmol/L (98-107); SODIUM,NA 141 mmol/L (136-145)
[2022-09-06 07:45] LABS: ESTIMATED GFR 86 mL/min (>=60)
[2022-09-06] MEDS ORDERED: Metoprolol Succinate 25 MG Tab.ER PO SCH (09:00)
[2022-09-06] MEDS: Acetaminophen 500 MG Tab PO SCH (09:46)
[2022-09-06] MEDS: Magnesium Oxide 500 MG Tab PO SCH (09:48)
[2022-09-06 09:51] VITALS: BP 149/70; PULSE 79
[2022-09-06] MEDS: Enoxaparin 40 MG/0.4 ML Syringe SUBCUT SCH (11:35)
[2022-09-06] MEDS ORDERED: Potassium Chloride 20 MEQ Tab.ER PO ONE (14:04)
[2022-09-16 12:54] LABS: CHLORIDE,CL 103 mmol/L (98-115); SODIUM,NA 139 mmol/L (136-145)
[2022-09-16 12:55] LABS: ANION GAP 10.8 mmol/L (5-15); ESTIMATED GFR 63 mL/min (>=60)
[2022-09-18 08:44] LABS: ANION GAP 12.6 mmol/L (5-15); CHLORIDE,CL 103 mmol/L (98-107); SODIUM,NA 139 mmol/L (136-145)
[2022-09-18 08:45] LABS: ESTIMATED GFR 77 mL/min (>=60)
[2022-09-18 15:02] LABS: ANION GAP 11.9 mmol/L (5-15); CHLORIDE,CL 98 mmol/L (98-115); ESTIMATED GFR 52 mL/min (>=60); SODIUM,NA 135 mmol/L (136-145)
== END 2022-09-06 15:25 | disposition swing bed (61) | DRG 389 ==
LOC: KA.ED 17:45 → KA.MS 19:45
PROVIDERS: ADMIT Physician Assistant Medical; ATTEND Nurse Practitioner Family
DX: K56.50 Intestinal adhesions [bands], unspecified as to partial versus complete obstruction (principal); I50.32 Chronic diastolic (congestive) heart failure; R53.1 Weakness; E80.4 Gilbert syndrome; E83.42 Hypomagnesemia; E87.6 Hypokalemia; I11.0 Hypertensive heart disease with heart failure; Z66 Do not resuscitate; D69.6 Thrombocytopenia, unspecified; M15.9 Polyosteoarthritis, unspecified; E53.8 Deficiency of other specified B group vitamins; E66.3 Overweight; R91.8 Other nonspecific abnormal finding of lung field; Z68.29 Body mass index [BMI] 29.0-29.9, adult; Z86.711 Personal history of pulmonary embolism; Z86.718 Personal history of other venous thrombosis and embolism; Z79.01 Long term (current) use of anticoagulants; Z95.2 Presence of prosthetic heart valve; Z98.42 Cataract extraction status, left eye; Z98.41 Cataract extraction status, right eye; Z79.1 Long term (current) use of non-steroidal anti-inflammatories (NSAID); Z79.899 Other long term (current) drug therapy; R19.7 Diarrhea, unspecified; K56.609 Unspecified intestinal obstruction, unspecified as to partial versus complete obstruction
CPT/HCPCS: 36415; 74177; 80053; 83735; 85025; 86140; 96361; 96374; 96375; 99223; 99285-25; A9270-GY; C9113; J1650; J2270; J2405; J3475; J3490; J7030; Q9967

== ENCOUNTER 2022-09-06 14:56 | Inpatient (IN) | payer MEDICARE ==
[2022-09-06] MEDS ORDERED: Phenol 1.4% Oral Spray 177 ML Bottle MUCMEM PRN (16:13)
[2022-09-06] MEDS ORDERED: Melatonin 3 MG Tab PO PRN (16:13)
[2022-09-06] MEDS ORDERED: MAGNESIUM POTASSIUM PO SCH ×2 (21:00)
[2022-09-06] MEDS: MAG PO SCH (21:00)
[2022-09-06] MEDS ORDERED: Magnesium Oxide 500 MG Tab PO SCH ×2 (21:00)
[2022-09-06] MEDS: Apixaban 5 MG Tab PO SCH (21:00)
[2022-09-06] MEDS: [UNRECOGNIZED DRUG - OTHER] PO SCH (21:00)
[2022-09-06] MEDS ORDERED: Acetaminophen 500 MG Tab PO SCH (21:00)
[2022-09-06] MEDS: Acetaminophen 500 MG Tab PO SCH (21:09)
[2022-09-07] MEDS: Pantoprazole 20 MG Tab, Delayed Release PO SCH (06:51)
[2022-09-07] MEDS ORDERED: Pantoprazole 20 MG Tab, Delayed Release PO SCH (07:30)
[2022-09-07] MEDS: Acetaminophen 500 MG Tab PO SCH ×2 (08:01→21:09)
[2022-09-07] MEDS: Lactobacillus Rhamnosus GG (Probiotic) Cap PO SCH (08:01)
[2022-09-07] MEDS: Cyanocobalamin (Vitamin B12) 500 MCG Tab PO SCH (08:01)
[2022-09-07] MEDS: Apixaban 5 MG Tab PO SCH ×2 (08:01→21:10)
[2022-09-07] MEDS: Metoprolol Succinate 25 MG Tab.ER PO SCH (08:02)
[2022-09-07] MEDS: MAG PO SCH ×2 (08:07→21:09)
[2022-09-07] MEDS: [UNRECOGNIZED DRUG - OTHER] PO SCH ×2 (08:07→21:09)
[2022-09-07] MEDS ORDERED: Metoprolol Succinate 25 MG Tab.ER PO SCH (09:00)
[2022-09-07] MEDS: amLODIPine 5 MG Tab PO SCH (14:00)
[2022-09-07] MEDS: Melatonin 3 MG Tab PO PRN (21:10)
[2022-09-07] MEDS: Phenol 1.4% Oral Spray 177 ML Bottle MUCMEM PRN (21:11)
[2022-09-08] MEDS: Pantoprazole 20 MG Tab, Delayed Release PO SCH (06:40)
[2022-09-08] MEDS: Metoprolol Succinate 25 MG Tab.ER PO SCH (08:22)
[2022-09-08] MEDS: amLODIPine 5 MG Tab PO SCH (08:22)
[2022-09-08] MEDS: Apixaban 5 MG Tab PO SCH ×2 (08:23→20:34)
[2022-09-08] MEDS: Lactobacillus Rhamnosus GG (Probiotic) Cap PO SCH (08:23)
[2022-09-08] MEDS: Acetaminophen 500 MG Tab PO SCH ×2 (08:23→20:34)
[2022-09-08] MEDS: Cyanocobalamin (Vitamin B12) 500 MCG Tab PO SCH (08:24)
[2022-09-08] MEDS: [UNRECOGNIZED DRUG - OTHER] PO SCH ×2 (11:01→20:33)
[2022-09-08] MEDS: MAG PO SCH ×2 (11:01→20:33)
[2022-09-08] MEDS: Melatonin 3 MG Tab PO PRN (20:34)
[2022-09-08] MEDS: Phenol 1.4% Oral Spray 177 ML Bottle MUCMEM PRN (20:46)
[2022-09-09] MEDS: Pantoprazole 20 MG Tab, Delayed Release PO SCH (06:29)
[2022-09-09 07:50] LABS: ANION GAP 12.1 mmol/L (5-15)
[2022-09-09] MEDS: Cyanocobalamin (Vitamin B12) 500 MCG Tab PO SCH (08:16)
[2022-09-09] MEDS: MAG PO SCH ×2 (08:16→21:26)
[2022-09-09] MEDS: Acetaminophen 500 MG Tab PO SCH ×2 (08:16→21:26)
[2022-09-09] MEDS: [UNRECOGNIZED DRUG - OTHER] PO SCH ×2 (08:16→21:26)
[2022-09-09] MEDS: Lactobacillus Rhamnosus GG (Probiotic) Cap PO SCH (08:16)
[2022-09-09] MEDS: Apixaban 5 MG Tab PO SCH ×2 (08:16→21:25)
[2022-09-09] MEDS: amLODIPine 5 MG Tab PO SCH (08:17)
[2022-09-09] MEDS: Metoprolol Succinate 50 MG Tab.ER PO SCH (08:17)
[2022-09-09] MEDS: Melatonin 3 MG Tab PO PRN (21:27)
[2022-09-10] MEDS: Pantoprazole 20 MG Tab, Delayed Release PO SCH (08:17)
[2022-09-10] MEDS: Lactobacillus Rhamnosus GG (Probiotic) Cap PO SCH (08:24)
[2022-09-10] MEDS: Metoprolol Succinate 50 MG Tab.ER PO SCH (08:25)
[2022-09-10] MEDS: amLODIPine 5 MG Tab PO SCH (08:25)
[2022-09-10] MEDS: Apixaban 5 MG Tab PO SCH ×2 (08:25→20:39)
[2022-09-10] MEDS: Cyanocobalamin (Vitamin B12) 500 MCG Tab PO SCH (08:25)
[2022-09-10] MEDS: Acetaminophen 500 MG Tab PO SCH ×2 (08:26→20:39)
[2022-09-10] MEDS: MAG PO SCH ×2 (09:44→20:38)
[2022-09-10] MEDS: [UNRECOGNIZED DRUG - OTHER] PO SCH ×2 (09:44→20:38)
[2022-09-10] MEDS: Melatonin 3 MG Tab PO PRN (20:39)
[2022-09-11] MEDS: Pantoprazole 20 MG Tab, Delayed Release PO SCH (07:15)
[2022-09-11] MEDS: Lactobacillus Rhamnosus GG (Probiotic) Cap PO SCH (08:06)
[2022-09-11] MEDS: Apixaban 5 MG Tab PO SCH ×2 (08:06→20:17)
[2022-09-11] MEDS: amLODIPine 5 MG Tab PO SCH (08:06)
[2022-09-11] MEDS: Metoprolol Succinate 50 MG Tab.ER PO SCH (08:06)
[2022-09-11] MEDS: Acetaminophen 500 MG Tab PO SCH ×2 (08:07→20:17)
[2022-09-11] MEDS: Cyanocobalamin (Vitamin B12) 500 MCG Tab PO SCH (08:07)
[2022-09-11] MEDS: MAG PO SCH ×2 (08:08→20:17)
[2022-09-11] MEDS: [UNRECOGNIZED DRUG - OTHER] PO SCH ×2 (08:08→20:17)
[2022-09-12] MEDS: Pantoprazole 20 MG Tab, Delayed Release PO SCH ×2 (05:45→06:41)
[2022-09-12] MEDS: [UNRECOGNIZED DRUG - OTHER] PO SCH (08:31)
[2022-09-12] MEDS: MAG PO SCH (08:31)
[2022-09-12] MEDS: Metoprolol Succinate 50 MG Tab.ER PO SCH (08:32)
[2022-09-12] MEDS: Cyanocobalamin (Vitamin B12) 500 MCG Tab PO SCH (08:32)
[2022-09-12] MEDS: Apixaban 5 MG Tab PO SCH (08:32)
[2022-09-12] MEDS: Lactobacillus Rhamnosus GG (Probiotic) Cap PO SCH (08:32)
[2022-09-12] MEDS: amLODIPine 5 MG Tab PO SCH (08:32)
[2022-09-12] MEDS: Acetaminophen 500 MG Tab PO SCH (08:32)
[2022-09-12 08:33] VITALS: BP 147/71; PULSE 61
== END 2022-09-12 14:10 | disposition home or self-care (01) | DRG 948 ==
LOC: KA.MS 15:25
PROVIDERS: ADMIT Nurse Practitioner Family; ATTEND Family Medicine
DX: R53.1 Weakness (principal); I50.32 Chronic diastolic (congestive) heart failure; E87.6 Hypokalemia; E83.42 Hypomagnesemia; Z66 Do not resuscitate; M15.9 Polyosteoarthritis, unspecified; G47.62 Sleep related leg cramps; E53.8 Deficiency of other specified B group vitamins; D69.6 Thrombocytopenia, unspecified; E80.4 Gilbert syndrome; R91.8 Other nonspecific abnormal finding of lung field; I11.0 Hypertensive heart disease with heart failure; E66.3 Overweight; Z68.29 Body mass index [BMI] 29.0-29.9, adult; Z79.1 Long term (current) use of non-steroidal anti-inflammatories (NSAID); Z95.2 Presence of prosthetic heart valve; Z86.718 Personal history of other venous thrombosis and embolism; Z86.711 Personal history of pulmonary embolism; Z79.01 Long term (current) use of anticoagulants; Z90.49 Acquired absence of other specified parts of digestive tract; Z98.890 Other specified postprocedural states; Z90.89 Acquired absence of other organs; Z98.42 Cataract extraction status, left eye; Z98.41 Cataract extraction status, right eye; Z79.899 Other long term (current) drug therapy
CPT/HCPCS: 36415; 80048; 83735; 85025; 97161-GP; A9270-GY

== ENCOUNTER 2023-02-13 11:25 | Inpatient (IN) | payer MEDICARE, OTHER ==
[2023-02-13] MEDS ORDERED: Sodium Chloride 0.9% 10 ML Syringe FLUSH PRN (11:40)
[2023-02-13 12:03] LABS: O2 DELIVERY DEVICE NASAL CANNULA
[2023-02-13 12:10] LABS: BICARBONATE,ARTERIAL 25.3 mm/L (22.0-26.0); O2 SATURATION ARTERIAL 98 % (95-98); PCO2 ARTERIAL 37 mm/Hg0 (35-45); PO2 ARTERIAL 96 mm/Hg (80-100)
[2023-02-13 12:19] LABS: ANION GAP 11.5 mmol/L (5-15); CHLORIDE,CL 101 mmol/L (98-107); ESTIMATED GFR 59 mL/min (>=60); SODIUM,NA 136 mmol/L (136-145)
[2023-02-13] MEDS ORDERED: Iopamidol 755 Mg/ML 75 ML Bottle IVPUSH ONE (13:01)
[2023-02-13] MEDS ORDERED: Sodium Chloride 0.9% 100 ML IV SCH (13:15)
[2023-02-13] MEDS ORDERED: Iopamidol 755 Mg/ML 100 ML Bottle IV ONE (13:32)
[2023-02-13 13:48] LABS: CORONAVIRUS COVID-19 NAA POSITIVE (NEGATIVE); RESPIRATORY SYNCYTIAL VIR NAA NEGATIVE (NEGATIVE)
[2023-02-13] MEDS ORDERED: Sodium Chloride 0.9% 500 ML IV ONE (15:23)
[2023-02-13] MEDS ORDERED: REMDESIVIR 200 MG in Sodium Chloride 0.9% 100 ML IV ONE (15:45)
[2023-02-13] MEDS: Sodium Chloride 0.9% 50 ML IV SCH (15:55)
[2023-02-13] MEDS: Dexamethasone 4 MG Tab PO SCH (16:06)
[2023-02-13] MEDS: Acetaminophen 325 MG Tab PO PRN (17:03)
[2023-02-13] MEDS: Acetaminophen 500 MG Tab PO SCH (20:54)
[2023-02-13] MEDS: Apixaban 5 MG Tab PO SCH (20:54)
[2023-02-14] MEDS: amLODIPine 5 MG Tab PO SCH (08:18)
[2023-02-14] MEDS: Apixaban 5 MG Tab PO SCH ×2 (08:19→21:35)
[2023-02-14] MEDS: Acetaminophen 500 MG Tab PO SCH ×2 (08:19→21:35)
[2023-02-14] MEDS: Cyanocobalamin (Vitamin B12) 500 MCG Tab PO SCH (08:20)
[2023-02-14] MEDS: Dexamethasone 4 MG Tab PO SCH (08:20)
[2023-02-14] MEDS: Metoprolol Succinate 25 MG Tab.ER PO SCH (08:21)
[2023-02-14] MEDS: POTASSIUM CITRATE PO SCH ×2 (12:04→21:34)
[2023-02-14] MEDS: MAGNESIUM CITRATE PO SCH ×2 (12:04→21:34)
[2023-02-14] MEDS: REMDESIVIR 100 MG in Sodium Chloride 0.9% 100 ML IV SCH (15:17)
[2023-02-15] MEDS: Acetaminophen 325 MG Tab PO PRN (05:36)
[2023-02-15] MEDS: Apixaban 5 MG Tab PO SCH ×3 (08:38→20:36)
[2023-02-15] MEDS: MAGNESIUM CITRATE PO SCH ×3 (08:38→20:36)
[2023-02-15] MEDS: POTASSIUM CITRATE PO SCH ×3 (08:38→20:36)
[2023-02-15] MEDS: Dexamethasone 4 MG Tab PO SCH (08:39)
[2023-02-15] MEDS: Cyanocobalamin (Vitamin B12) 500 MCG Tab PO SCH (08:39)
[2023-02-15] MEDS: amLODIPine 5 MG Tab PO SCH (08:40)
[2023-02-15] MEDS: Acetaminophen 500 MG Tab PO SCH ×3 (08:40→20:36)
[2023-02-15] MEDS: Metoprolol Succinate 25 MG Tab.ER PO SCH (08:41)
[2023-02-15] MEDS: Magnesium Hydroxide 400 MG/5 ML Susp 30 ML Cup PO SCH ×2 (10:59→22:15)
[2023-02-15] MEDS: REMDESIVIR 100 MG in Sodium Chloride 0.9% 100 ML IV SCH (15:08)
[2023-02-16 07:35] LABS: ANION GAP 9.9 mmol/L (5-15)
[2023-02-16] MEDS: Cyanocobalamin (Vitamin B12) 500 MCG Tab PO SCH (07:59)
[2023-02-16] MEDS: Apixaban 5 MG Tab PO SCH ×2 (08:10→20:16)
[2023-02-16] MEDS: amLODIPine 5 MG Tab PO SCH (08:10)
[2023-02-16] MEDS: Dexamethasone 4 MG Tab PO SCH (08:11)
[2023-02-16] MEDS: MAGNESIUM CITRATE PO SCH ×2 (08:12→20:15)
[2023-02-16] MEDS: Acetaminophen 500 MG Tab PO SCH ×2 (08:12→20:17)
[2023-02-16] MEDS: POTASSIUM CITRATE PO SCH ×2 (08:12→20:15)
[2023-02-16] MEDS: Metoprolol Succinate 25 MG Tab.ER PO SCH (08:13)
[2023-02-16] MEDS: Sodium Chloride 0.9% 50 ML IV SCH (14:22)
[2023-02-16] MEDS: REMDESIVIR 100 MG in Sodium Chloride 0.9% 100 ML IV SCH (14:22)
[2023-02-17] MEDS: Cyanocobalamin (Vitamin B12) 500 MCG Tab PO SCH (08:04)
[2023-02-17] MEDS: Apixaban 5 MG Tab PO SCH (08:05)
[2023-02-17] MEDS: Acetaminophen 500 MG Tab PO SCH (08:05)
[2023-02-17] MEDS: amLODIPine 5 MG Tab PO SCH (08:05)
[2023-02-17] MEDS: Metoprolol Succinate 25 MG Tab.ER PO SCH (08:06)
[2023-02-17] MEDS: POTASSIUM CITRATE PO SCH (08:06)
[2023-02-17] MEDS: Dexamethasone 4 MG Tab PO SCH (08:06)
[2023-02-17] MEDS: MAGNESIUM CITRATE PO SCH (08:06)
[2023-02-17] MEDS ORDERED: REMDESIVIR 100 MG in Sodium Chloride 0.9% 100 ML IV SCH (12:00)
[2023-02-17] MEDS: Sodium Chloride 0.9% 50 ML IV SCH (13:06)
[2023-02-17 14:26] VITALS: BP 130/70; PULSE 64
== END 2023-02-17 17:18 | disposition home or self-care (01) | DRG 178 ==
LOC: KA.MS 11:25 → OBSVTOIN 15:35 → KA.MS 15:35
PROVIDERS: ADMIT Nurse Practitioner Family; ATTEND Nurse Practitioner Family
PROC: XW033E5 Introduction of Remdesivir Anti-infective into Peripheral Vein, Percutaneous Approach, New Technology Group 5 (ICD-10-PCS; principal; 2023-02-13)
PROC: 3E0333Z Introduction of Anti-inflammatory into Peripheral Vein, Percutaneous Approach (ICD-10-PCS; 2023-02-13)
DX: U07.1 COVID-19 (principal); I50.32 Chronic diastolic (congestive) heart failure; I11.0 Hypertensive heart disease with heart failure; I50.30 Unspecified diastolic (congestive) heart failure; E53.8 Deficiency of other specified B group vitamins; K21.9 Gastro-esophageal reflux disease without esophagitis; K59.00 Constipation, unspecified; E80.4 Gilbert syndrome; Z88.5 Allergy status to narcotic agent; Z88.8 Allergy status to other drugs, medicaments and biological substances; Z95.2 Presence of prosthetic heart valve; Z86.711 Personal history of pulmonary embolism
CPT/HCPCS: 0241U; 36415; 36600; 71275; 80048; 80053; 80076; 82803; 83880; 84484; 85025; 85379; A9270-GY; J0248; J3490; J7030; J8540; Q9967

== ENCOUNTER 2023-03-12 17:38 | Inpatient (IN) | payer MEDICARE ==
[2023-03-12] MEDS ORDERED: Sodium Chloride 0.9% 10 ML Syringe FLUSH PRN (18:13)
[2023-03-12 18:44] LABS: ANION GAP 11.6 mmol/L (5-15)
[2023-03-12] MEDS ORDERED: Ondansetron 4 MG/2 ML SDV IVPUSH ONE (19:03)
[2023-03-12] MEDS ORDERED: Iopamidol 755 Mg/ML 100 ML Bottle IV ONE (19:17)
[2023-03-12] MEDS ORDERED: Sodium Chloride 0.9% 50 ML IV SCH (19:30)
[2023-03-12] MEDS ORDERED: Sodium Chloride 0.9% 1,000 ML IV SCH (20:15)
[2023-03-12] MEDS ORDERED: Lidocaine 2% Viscous Solution 15 ML UD PO ONE (20:42)
[2023-03-13] MEDS ORDERED: Sodium Chloride 0.9% 1,000 ML ONE (00:35)
[2023-03-13] MEDS: Sodium Chloride 0.9% 1,000 ML IV SCH ×3 (00:40→16:39)
[2023-03-13 07:43] LABS: ANION GAP 10.1 mmol/L (5-15)
[2023-03-13] MEDS ORDERED: Acetaminophen 325 MG Tab PO PRN (12:29)
[2023-03-13] MEDS: Acetaminophen 500 MG Tab PO SCH ×2 (13:41→20:54)
[2023-03-13] MEDS: Apixaban 5 MG Tab PO SCH ×2 (13:41→20:55)
[2023-03-13] MEDS: Lactobacillus Rhamnosus GG (Probiotic) Cap PO SCH (13:41)
[2023-03-13] MEDS: Metoprolol Succinate 25 MG Tab.ER PO SCH (13:41)
[2023-03-13] MEDS: POTASSIUM PO SCH ×2 (13:42→20:56)
[2023-03-13] MEDS: MAGNESIUM PO SCH ×2 (13:42→20:56)
[2023-03-13] MEDS ORDERED: Sodium Chloride 0.9% 1,000 ML IV SCH (20:15)
[2023-03-14] MEDS: Sodium Chloride 0.9% 1,000 ML IV SCH ×2 (00:09→08:15)
[2023-03-14 07:53] LABS: ANION GAP 10.6 mmol/L (5-15)
[2023-03-14] MEDS: Apixaban 5 MG Tab PO SCH ×2 (08:11→21:10)
[2023-03-14] MEDS: Tamsulosin 0.4 MG Cap.ER PO SCH (08:11)
[2023-03-14] MEDS: Lactobacillus Rhamnosus GG (Probiotic) Cap PO SCH (08:11)
[2023-03-14] MEDS: Acetaminophen 500 MG Tab PO SCH ×2 (08:12→21:10)
[2023-03-14] MEDS: Metoprolol Succinate 25 MG Tab.ER PO SCH (08:13)
[2023-03-14] MEDS: MAGNESIUM PO SCH ×2 (08:15→21:11)
[2023-03-14] MEDS: POTASSIUM PO SCH ×2 (08:15→21:11)
[2023-03-15 08:00] LABS: ANION GAP 9.9 mmol/L (5-15)
[2023-03-15] MEDS: Acetaminophen 500 MG Tab PO SCH (08:34)
[2023-03-15] MEDS: Apixaban 5 MG Tab PO SCH (08:34)
[2023-03-15] MEDS: Lactobacillus Rhamnosus GG (Probiotic) Cap PO SCH (08:34)
[2023-03-15] MEDS: Tamsulosin 0.4 MG Cap.ER PO SCH (08:34)
[2023-03-15 08:35] VITALS: BP 144/67; PULSE 80
[2023-03-15] MEDS: Metoprolol Succinate 25 MG Tab.ER PO SCH (08:35)
[2023-03-15] MEDS: POTASSIUM PO SCH (08:36)
[2023-03-15] MEDS: MAGNESIUM PO SCH (08:36)
== END 2023-03-15 14:45 | disposition home or self-care (01) | DRG 389 ==
LOC: KA.ED 17:38 → KA.MS 21:59 → UNDOADMIN 22:38 → KA.MS 22:38
PROVIDERS: ADMIT Family Medicine; ATTEND Family Medicine
PROC: 0T9B70Z Drainage of Bladder with Drainage Device, Via Natural or Artificial Opening (ICD-10-PCS; principal; 2023-03-12)
PROC: 0D9670Z Drainage of Stomach with Drainage Device, Via Natural or Artificial Opening (ICD-10-PCS; 2023-03-12)
DX: K56.600 Partial intestinal obstruction, unspecified as to cause (principal); E87.20 Acidosis, unspecified; I50.32 Chronic diastolic (congestive) heart failure; K56.7 Ileus, unspecified; H91.90 Unspecified hearing loss, unspecified ear; J44.9 Chronic obstructive pulmonary disease, unspecified; M19.90 Unspecified osteoarthritis, unspecified site; E53.8 Deficiency of other specified B group vitamins; I11.0 Hypertensive heart disease with heart failure; Z66 Do not resuscitate; E80.4 Gilbert syndrome; D69.6 Thrombocytopenia, unspecified; D47.2 Monoclonal gammopathy; M15.9 Polyosteoarthritis, unspecified; Z98.41 Cataract extraction status, right eye; Z95.4 Presence of other heart-valve replacement; Z86.718 Personal history of other venous thrombosis and embolism; Z98.890 Other specified postprocedural states; Z88.5 Allergy status to narcotic agent; Z90.49 Acquired absence of other specified parts of digestive tract; Z86.711 Personal history of pulmonary embolism; Z88.8 Allergy status to other drugs, medicaments and biological substances; Z98.42 Cataract extraction status, left eye; N40.1 Benign prostatic hyperplasia with lower urinary tract symptoms; R33.8 Other retention of urine; Z86.16 Personal history of COVID-19
CPT/HCPCS: 36415; 71045; 71046; 74177; 80048; 80053; 81001; 81003; 82150; 83605; 83690; 83735; 84484; 85025; 86140; 87040; 93005; 93010; 99285; A9270-GY; J2405; J3490; J7030; Q9967

== ENCOUNTER 2023-03-20 21:12 | Emergency (ER) | payer MEDICARE ==
[2023-03-20] MEDS: Acetaminophen 500 MG Tab PO ONE (21:48)
[2023-03-20 21:50] LABS: BILIRUBIN,URINE NEGATIVE (NEGATIVE); COLOR,URINE YELLOW (YELLOW); GLUCOSE,URINE NEGATIVE (NEGATIVE); KETONES,URINE NEGATIVE (NEGATIVE); LEUKOCYTE ESTERASE,URINE SMALL (NEGATIVE); NITRITE,URINE NEGATIVE (NEGATIVE); OCCULT BLOOD,URINE LARGE (NEGATIVE); PROTEIN,URINE >=300 mg/dL (NEGATIVE); UROBILINOGEN,URINE 0.2 E.U./dL (0.2-1.0)
[2023-03-20 21:51] LABS: APPEARANCE,URINE SLIGHTLY CLOUDY (CLEAR)
[2023-03-20 21:56] LABS: BACTERIA,URINE RARE /HPF (NONE TO FEW); EPITHELIAL CELLS,URINE RARE /LPF; RBC,URINE 40-50 /HPF (0-5)
[2023-03-20] MEDS: Lidocaine 2% Jelly 5 ML Tube TOP ONE (22:00)
[2023-03-20 22:08] VITALS: BP 153/70; PULSE 81
[2023-03-20] MEDS: Acetaminophen 500 MG Tab ONE (22:18)
[2023-03-20] MEDS: Lidocaine 2% Jelly 5 ML Tube ONE (22:19)
== END 2023-03-20 22:20 | disposition home or self-care (01) ==
LOC: KA.ED 21:12
DX: T83.038A Leakage of other urinary catheter, initial encounter (principal); R33.9 Retention of urine, unspecified; J44.9 Chronic obstructive pulmonary disease, unspecified; I11.0 Hypertensive heart disease with heart failure; I50.9 Heart failure, unspecified; Z88.5 Allergy status to narcotic agent; Z79.01 Long term (current) use of anticoagulants; Z86.16 Personal history of COVID-19
CPT/HCPCS: 81001; 87086; 99284; A9270-GY

== ENCOUNTER 2024-08-25 21:08 | Inpatient (IN) | payer MEDICARE ==
[2024-08-25] MEDS ORDERED: Sodium Chloride 0.9% 10 ML Syringe FLUSH PRN (21:38)
[2024-08-25] MEDS: Sodium Chloride 0.9% 10 ML Syringe FLUSH PRN (21:44)
[2024-08-25 22:10] LABS: BASOPHILS ABSOLUTE AUTO 0.01 10^3/uL (0.00-0.10); BASOPHILS PERCENT AUTO 0.2 % (0.0-1.0); EOSINOPHILS ABSOLUTE AUTO 0.05 10^3/uL (0.10-0.30); EOSINOPHILS PERCENT AUTO 0.9 % (1.0-3.0); HEMOGLOBIN 13.7 g/dL (13.0-17.0); IMMATURE GRAN ABSOLUTE AUTO 0.03 10^3/uL (0.00-0.50); IMMATURE GRAN PERCENT AUTO 0.5 % (0.0-5.0); LYMPHOCYTES ABSOLUTE AUTO 0.99 10^3/uL (1.00-4.00); LYMPHOCYTES PERCENT AUTO 17.6 % (20.0-40.0); MEAN CORPUSCULAR HEMOGLOBIN 30.7 pg (27.0-31.0); MEAN CORPUSCULAR HGB CONC 34.3 g/dL (32.0-36.0); MEAN CORPUSCULAR VOLUME 89.7 fL (82.0-92.0); MEAN PLATELET VOLUME 11.4 fL (7.4-10.4); MONOCYTES ABSOLUTE AUTO 0.52 10^3/uL (0.10-0.80); MONOCYTES PERCENT AUTO 9.3 % (2.0-8.0); NEUTROPHILS ABSOLUTE AUTO 4.01 10^3/uL (2.50-7.00); NEUTROPHILS PERCENT AUTO 71.5 % (50.0-70.0); PLATELET COUNT,PLT 115 10^3/uL (150-400); RED BLOOD CELL COUNT 4.46 10^6/uL (4.50-6.00); RED CELL DISTRIBUTION WIDTH 12.9 % (11.5-14.5); WHITE BLOOD CELL COUNT,WBC 5.61 10^3/uL (5.00-10.00)
[2024-08-25 22:26] LABS: ALBUMIN 2.89 g/dL (3.40-5.00); ANION GAP 17.3 mmol/L (5-15); BILIRUBIN TOTAL 3.3 mg/dL (0.2-1.0); CALCIUM 8.7 mg/dL (8.7-10.3); CARBON DIOXIDE,CO2 24.9 mmol/L (21.0-32.0); CREATININE 1.15 mg/dL (0.51-1.17); EST CRCL DRUG DOSING (CG) 50.61 mL/min; POTASSIUM,K 4.2 mmol/L (3.5-5.1); PROTEIN TOTAL,TP 6.2 g/dL (6.4-8.2)
[2024-08-25 22:55] LABS: INFLUENZA A NAA NEGATIVE (NEGATIVE); INFLUENZA B NAA NEGATIVE (NEGATIVE); RESPIRATORY SYNCYTIAL VIR NAA NEGATIVE (NEGATIVE)
[2024-08-25 22:57] LABS: CORONAVIRUS COVID-19 NAA NEGATIVE (NEGATIVE)
[2024-08-25] MEDS: Sodium Chloride 0.9% 100 ML IV SCH (22:57)
[2024-08-25] MEDS: Iopamidol 755 Mg/ML 100 ML Bottle IV ONE (22:57)
[2024-08-26] MEDS: Furosemide 40 MG/4 ML VIAL IVPUSH ONE ×2 (00:50→11:00)
[2024-08-26 00:54] LABS: HEMOGLOBIN A1C 6.3 % (4.3-5.7)
[2024-08-26] MEDS ORDERED: 50% Dextrose in Water 50 ML Syringe IVPUSH PRN (02:25)
[2024-08-26] MEDS ORDERED: Glucagon,Human Recombinant 1 MG Vial IM PRN (02:25)
[2024-08-26 07:16] LABS: BASOPHILS ABSOLUTE AUTO 0.02 10^3/uL (0.00-0.10); BASOPHILS PERCENT AUTO 0.3 % (0.0-1.0); EOSINOPHILS ABSOLUTE AUTO 0.08 10^3/uL (0.10-0.30); EOSINOPHILS PERCENT AUTO 1.3 % (1.0-3.0); HEMATOCRIT 41.1 % (40.0-52.0); IMMATURE GRAN ABSOLUTE AUTO 0.02 10^3/uL (0.00-0.50); IMMATURE GRAN PERCENT AUTO 0.3 % (0.0-5.0); LYMPHOCYTES ABSOLUTE AUTO 1.16 10^3/uL (1.00-4.00); LYMPHOCYTES PERCENT AUTO 18.4 % (20.0-40.0); MEAN CORPUSCULAR HEMOGLOBIN 30.2 pg (27.0-31.0); MEAN CORPUSCULAR HGB CONC 34.1 g/dL (32.0-36.0); MEAN CORPUSCULAR VOLUME 88.8 fL (82.0-92.0); MEAN PLATELET VOLUME 11.5 fL (7.4-10.4); MONOCYTES ABSOLUTE AUTO 0.66 10^3/uL (0.10-0.80); MONOCYTES PERCENT AUTO 10.5 % (2.0-8.0); NEUTROPHILS ABSOLUTE AUTO 4.35 10^3/uL (2.50-7.00); NEUTROPHILS PERCENT AUTO 69.2 % (50.0-70.0); PLATELET COUNT,PLT 125 10^3/uL (150-400); RED BLOOD CELL COUNT 4.63 10^6/uL (4.50-6.00); WHITE BLOOD CELL COUNT,WBC 6.29 10^3/uL (5.00-10.00)
[2024-08-26 07:32] LABS: ANION GAP 13.3 mmol/L (5-15); CALCIUM 8.9 mg/dL (8.7-10.3); CREATININE 1.11 mg/dL (0.51-1.17); EST CRCL DRUG DOSING (CG) 52.43 mL/min; POTASSIUM,K 4.3 mmol/L (3.5-5.1)
[2024-08-26] MEDS: Insulin Lispro 100 Unit/ML 3 ML KwikPen SUBCUT SCH (07:37)
[2024-08-26] MEDS: Potassium Chloride 10 MEQ Tab.ER PO SCH (08:18)
[2024-08-26] MEDS: Tamsulosin 0.4 MG Cap.ER PO SCH (08:18)
[2024-08-26] MEDS: Magnesium Oxide 500 MG Tab PO SCH (08:18)
[2024-08-26] MEDS: amLODIPine 5 MG Tab PO SCH (08:18)
[2024-08-26] MEDS: Apixaban 5 MG Tab PO SCH (08:18)
[2024-08-26] MEDS: Cyanocobalamin (Vitamin B12) 500 MCG Tab PO SCH (08:19)
[2024-08-26] MEDS: Metoprolol Succinate 50 MG Tab.ER PO SCH (08:19)
[2024-08-26] MEDS: Lactobacillus Rhamnosus GG (Probiotic) Cap PO SCH (08:19)
[2024-08-26] MEDS ORDERED: MAGNESIUM POTASSIUM PO SCH (09:00)
[2024-08-26] MEDS ORDERED: Magnesium Oxide 500 MG Tab PO SCH (09:00)
[2024-08-26] MEDS: MAGNESIUM ASPARTATE PO SCH (20:01)
[2024-08-26] MEDS: [UNRECOGNIZED DRUG - OTHER] PO SCH (20:01)
[2024-08-26] MEDS: Acetaminophen 325 MG Tab PO PRN (20:11)
[2024-08-26] MEDS: Albuterol/Ipratropium 3.0-0.5 MG/3 ML Neb Soln NEB PRN (22:13)
[2024-08-27 07:25] LABS: ALBUMIN 2.75 g/dL (3.40-5.00); ANION GAP 11.1 mmol/L (5-15); CALCIUM 8.5 mg/dL (8.7-10.3); CARBON DIOXIDE,CO2 30.3 mmol/L (21.0-32.0); CREATININE 1.13 mg/dL (0.51-1.17); EST CRCL DRUG DOSING (CG) 51.5 mL/min; PHOSPHORUS 3.3 mg/dL (2.6-4.7); POTASSIUM,K 4.4 mmol/L (3.5-5.1)
[2024-08-27 13:57] VITALS: BP 132/53; PULSE 78
== END 2024-08-27 14:00 | disposition home or self-care (01) | DRG 291 ==
LOC: KA.ED 21:08 → KA.MS 08-26 01:05
PROVIDERS: ADMIT Physician Assistant Medical; ATTEND Internal Medicine
DX: R09.02 Hypoxemia (principal); I11.0 Hypertensive heart disease with heart failure; J96.01 Acute respiratory failure with hypoxia; I50.9 Heart failure, unspecified; J44.9 Chronic obstructive pulmonary disease, unspecified; M19.90 Unspecified osteoarthritis, unspecified site; Z88.6 Allergy status to analgesic agent; H54.7 Unspecified visual loss; H91.90 Unspecified hearing loss, unspecified ear; N40.0 Benign prostatic hyperplasia without lower urinary tract symptoms; R73.9 Hyperglycemia, unspecified; Z95.2 Presence of prosthetic heart valve; Z88.5 Allergy status to narcotic agent; Z79.01 Long term (current) use of anticoagulants; Z86.16 Personal history of COVID-19; Z90.49 Acquired absence of other specified parts of digestive tract; Z90.89 Acquired absence of other organs; Z98.890 Other specified postprocedural states; Z79.899 Other long term (current) drug therapy; Z86.711 Personal history of pulmonary embolism
CPT/HCPCS: 0241U; 36415; 71045; 71275; 80048; 80053; 80069; 82947; 83036; 83605; 83880; 84484; 85025; 99285; A9270-GY; J1940; J3490; J7620-GY; Q3014; Q9967

== ENCOUNTER 2024-10-05 05:07 | Inpatient (IN) | payer MEDICARE ==
[2024-10-05] MEDS: Albuterol/Ipratropium 3.0-0.5 MG/3 ML Neb Soln NEB ONE (05:35)
[2024-10-05 05:45] LABS: BASOPHILS ABSOLUTE AUTO 0.02 10^3/uL (0.00-0.10); BASOPHILS PERCENT AUTO 0.5 % (0.0-1.0); EOSINOPHILS ABSOLUTE AUTO 0.03 10^3/uL (0.10-0.30); EOSINOPHILS PERCENT AUTO 0.7 % (1.0-3.0); HEMATOCRIT 42.3 % (40.0-52.0); HEMOGLOBIN 14.4 g/dL (13.0-17.0); IMMATURE GRAN ABSOLUTE AUTO 0.02 10^3/uL (0.00-0.50); IMMATURE GRAN PERCENT AUTO 0.5 % (0.0-5.0); LYMPHOCYTES ABSOLUTE AUTO 0.65 10^3/uL (1.00-4.00); LYMPHOCYTES PERCENT AUTO 15.4 % (20.0-40.0); MEAN CORPUSCULAR HEMOGLOBIN 29.9 pg (27.0-31.0); MEAN CORPUSCULAR VOLUME 87.9 fL (82.0-92.0); MONOCYTES ABSOLUTE AUTO 0.41 10^3/uL (0.10-0.80); MONOCYTES PERCENT AUTO 9.7 % (2.0-8.0); NEUTROPHILS PERCENT AUTO 73.2 % (50.0-70.0); PLATELET COUNT,PLT 109 10^3/uL (150-400); RED BLOOD CELL COUNT 4.81 10^6/uL (4.50-6.00); RED CELL DISTRIBUTION WIDTH 12.7 % (11.5-14.5); WHITE BLOOD CELL COUNT,WBC 4.23 10^3/uL (5.00-10.00)
[2024-10-05 06:06] LABS: ALBUMIN 3.36 g/dL (3.40-5.00); ANION GAP 10.7 mmol/L (5-15); BILIRUBIN TOTAL 2.3 mg/dL (0.2-1.0); C-REACTIVE PROTEIN 1.98 mg/dL (0.00-0.50); CALCIUM 8.2 mg/dL (8.7-10.3); CARBON DIOXIDE,CO2 28.3 mmol/L (21.0-32.0); CREATININE 1.1 mg/dL (0.51-1.17); EST CRCL DRUG DOSING (CG) 52.91 mL/min; PROTEIN TOTAL,TP 6.9 g/dL (6.4-8.2)
[2024-10-05] MEDS: Furosemide 40 MG/4 ML VIAL IVPUSH ONE ×2 (06:08→09:54)
[2024-10-05] MEDS ORDERED: Polyethylene Glycol 3350 Powder 17 GM Packet PO PRN (09:18)
[2024-10-05] MEDS ORDERED: Albuterol/Ipratropium 3.0-0.5 MG/3 ML Neb Soln NEB PRN (09:18)
[2024-10-05] MEDS ORDERED: Acetaminophen 325 MG Tab PO PRN (09:18)
[2024-10-05] MEDS: Metoprolol Succinate 25 MG Tab.ER PO SCH (09:44)
[2024-10-05] MEDS: Apixaban 5 MG Tab PO SCH (09:46)
[2024-10-05] MEDS: methylPREDNISolone Sodium Succinate 40 MG/1 ML SDV IVPUSH SCH (09:53)
[2024-10-05] MEDS: Magnesium Oxide 500 MG Tab PO SCH (21:45)
[2024-10-05] MEDS: Potassium Chloride 20 MEQ Tab.ER PO SCH (21:45)
[2024-10-05] MEDS: Acetaminophen 500 MG Tab PO SCH (21:46)
[2024-10-05] MEDS: BONE SUPPORT PO SCH (21:46)
[2024-10-06 08:12] LABS: ALBUMIN 3.21 g/dL (3.40-5.00); ANION GAP 11.5 mmol/L (5-15); BILIRUBIN TOTAL 2.5 mg/dL (0.2-1.0); CALCIUM 8.7 mg/dL (8.7-10.3); CARBON DIOXIDE,CO2 30.8 mmol/L (21.0-32.0); CREATININE 1.09 mg/dL (0.51-1.17); EST CRCL DRUG DOSING (CG) 53.39 mL/min; POTASSIUM,K 4.3 mmol/L (3.5-5.1); PROTEIN TOTAL,TP 7.1 g/dL (6.4-8.2)
[2024-10-06] MEDS: Tamsulosin 0.4 MG Cap.ER PO SCH (08:14)
[2024-10-06] MEDS: amLODIPine 5 MG Tab PO SCH (08:37)
[2024-10-06] MEDS ORDERED: Levalbuterol HCl 0.63 MG/3 ML Neb NEB PRN (10:01)
[2024-10-06] MEDS: Furosemide 40 MG/4 ML VIAL IVPUSH ONE (10:36)
[2024-10-06] MEDS: Sodium Chloride 0.9% 1,000 ML IV ONE (13:57)
[2024-10-06] MEDS: Sodium Chloride 0.9% 10 ML Syringe FLUSH PRN (21:00)
[2024-10-07 07:45] LABS: ALBUMIN 3.02 g/dL (3.40-5.00); ANION GAP 11.7 mmol/L (5-15); CALCIUM 8.1 mg/dL (8.7-10.3); CARBON DIOXIDE,CO2 31.5 mmol/L (21.0-32.0); CREATININE 1.06 mg/dL (0.51-1.17); EST CRCL DRUG DOSING (CG) 54.91 mL/min; POTASSIUM,K 4.2 mmol/L (3.5-5.1); PROTEIN TOTAL,TP 6.6 g/dL (6.4-8.2)
[2024-10-07 09:04] VITALS: PULSE 70
[2024-10-07 14:21] VITALS: BP 138/53
== END 2024-10-07 14:15 | disposition home or self-care (01) | DRG 291 ==
LOC: KA.ED 05:07 → UNDOADMIN 06:48 → KA.MS 06:48
PROVIDERS: ADMIT Internal Medicine; ATTEND Internal Medicine
DX: J44.9 Chronic obstructive pulmonary disease, unspecified (principal); I11.0 Hypertensive heart disease with heart failure; I50.9 Heart failure, unspecified; I50.33 Acute on chronic diastolic (congestive) heart failure; J96.01 Acute respiratory failure with hypoxia; J44.1 Chronic obstructive pulmonary disease with (acute) exacerbation; Z88.5 Allergy status to narcotic agent; Z66 Do not resuscitate; I48.91 Unspecified atrial fibrillation; H91.90 Unspecified hearing loss, unspecified ear; H54.7 Unspecified visual loss; M19.90 Unspecified osteoarthritis, unspecified site; Z88.8 Allergy status to other drugs, medicaments and biological substances; Z79.899 Other long term (current) drug therapy; Z79.01 Long term (current) use of anticoagulants; Z95.2 Presence of prosthetic heart valve; Z87.81 Personal history of (healed) traumatic fracture; Z86.16 Personal history of COVID-19; Z90.49 Acquired absence of other specified parts of digestive tract; Z98.890 Other specified postprocedural states; Z86.711 Personal history of pulmonary embolism
CPT/HCPCS: 36415; 71046; 80053; 83880; 84484; 85025; 86140; 93005; 93010; 94640; 96374; 99223-GT; 99233-GT; 99239-GT; 99284; 99285-25; A9270-GY; J1940; J2919; J3490; J7620-GY; Q3014

== ENCOUNTER 2025-09-22 06:50 | Inpatient (IN) | payer MEDICARE, OTHER ==
[2025-09-22 07:18] LABS: BASOPHILS ABSOLUTE AUTO 0.02 10^3/uL (0.00-0.10); BASOPHILS PERCENT AUTO 0.3 % (0.0-1.0); EOSINOPHILS ABSOLUTE AUTO 0.10 10^3/uL (0.10-0.30); EOSINOPHILS PERCENT AUTO 1.5 % (1.0-3.0); IMMATURE GRAN ABSOLUTE AUTO 0.05 10^3/uL (0.00-0.04); IMMATURE GRAN PERCENT AUTO 0.7 % (0.0-0.4); LYMPHOCYTES ABSOLUTE AUTO 0.61 10^3/uL (1.00-4.00); LYMPHOCYTES PERCENT AUTO 9.1 % (20.0-40.0); MEAN PLATELET VOLUME 11.5 fL (7.4-10.4); MONOCYTES ABSOLUTE AUTO 0.67 10^3/uL (0.10-0.80); MONOCYTES PERCENT AUTO 10.0 % (2.0-8.0); NEUTROPHILS ABSOLUTE AUTO 5.25 10^3/uL (2.50-7.00); NEUTROPHILS PERCENT AUTO 78.4 % (50.0-70.0); PLATELET COUNT,PLT 151 10^3/uL (150-400); RED BLOOD CELL COUNT 4.12 10^6/uL (4.50-6.00); RED CELL DISTRIBUTION WIDTH 12.7 % (11.5-14.5); WHITE BLOOD CELL COUNT,WBC 6.70 10^3/uL (5.00-10.00)
[2025-09-22 07:40] LABS: ALANINE AMINOTRANSFERASE,ALT 23 U/L (14-63); ASPARTATE AMNIOTRANSFERASE,AST 20 U/L (15-37); BILIRUBIN TOTAL 3.4 mg/dL (0.2-1.0); BLOOD UREA NITROGEN,BUN 27 mg/dL (7-18); CARBON DIOXIDE,CO2 27.2 mmol/L (21.0-32.0); CHLORIDE,CL 105 mmol/L (98-107); CREATININE 1.14 mg/dL (0.51-1.17); GLUCOSE RANDOM 192 mg/dL (70-140); POTASSIUM,K 4.0 mmol/L (3.5-5.1); PROTEIN TOTAL,TP 7.0 g/dL (6.4-8.2); SODIUM,NA 142 mmol/L (136-145)
[2025-09-22 07:42] LABS: ESTIMATED GFR 62 mL/min (>=60)
[2025-09-22 07:43] LABS: B-TYPE NATRIURETIC PEPTIDE,BNP 799 pg/mL (0-100)
[2025-09-22] MEDS: Furosemide 40 MG/4 ML VIAL IVPUSH ONE (07:53)
[2025-09-22] MEDS: methylPREDNISolone Sodium Succinate 40 MG/1 ML SDV IVPUSH SCH (10:44)
[2025-09-22] MEDS: Furosemide 40 MG/4 ML VIAL IVPUSH SCH (15:19)
[2025-09-23 07:51] LABS: MEAN PLATELET VOLUME 11.2 fL (7.4-10.4); PLATELET COUNT,PLT 153 10^3/uL (150-400); RED BLOOD CELL COUNT 4.08 10^6/uL (4.50-6.00); RED CELL DISTRIBUTION WIDTH 12.6 % (11.5-14.5); WHITE BLOOD CELL COUNT,WBC 5.30 10^3/uL (5.00-10.00)
[2025-09-23 08:04] LABS: ALANINE AMINOTRANSFERASE,ALT 19.0 U/L (14-63); ASPARTATE AMNIOTRANSFERASE,AST 24.0 U/L (15-37); BILIRUBIN TOTAL 2.4 mg/dL (0.2-1.0); BLOOD UREA NITROGEN,BUN 34.0 mg/dL (7-18); CARBON DIOXIDE,CO2 28.0 mmol/L (21.0-32.0); CHLORIDE,CL 105.0 mmol/L (98-107); CREATININE 1.18 mg/dL (0.51-1.17); EST CRCL DRUG DOSING (CG) 48.41 mL/min; GLUCOSE RANDOM 239.0 mg/dL (70-140); POTASSIUM,K 4.8 mmol/L (3.5-5.1); PROTEIN TOTAL,TP 7.2 g/dL (6.4-8.2); SODIUM,NA 144.0 mmol/L (136-145)
[2025-09-23 08:06] LABS: ESTIMATED GFR 60.0 mL/min (>=60)
[2025-09-23] MEDS: Cyanocobalamin (Vitamin B12) 500 MCG Tab PO SCH (08:45)
[2025-09-23] MEDS: Sodium Chloride 0.9% 10 ML Syringe FLUSH PRN (08:50)
[2025-09-23] MEDS: Furosemide 40 MG/4 ML VIAL IVPUSH SCH (15:15)
[2025-09-24 07:10] LABS: MEAN PLATELET VOLUME 11.8 fL (7.4-10.4); PLATELET COUNT,PLT 176 10^3/uL (150-400); RED BLOOD CELL COUNT 3.92 10^6/uL (4.50-6.00); RED CELL DISTRIBUTION WIDTH 12.8 % (11.5-14.5); WHITE BLOOD CELL COUNT,WBC 9.67 10^3/uL (5.00-10.00)
[2025-09-24 07:27] LABS: ALANINE AMINOTRANSFERASE,ALT 23.0 U/L (14-63); ASPARTATE AMNIOTRANSFERASE,AST 28.0 U/L (15-37); BILIRUBIN TOTAL 1.5 mg/dL (0.2-1.0); BLOOD UREA NITROGEN,BUN 48.0 mg/dL (7-18); CARBON DIOXIDE,CO2 28.7 mmol/L (21.0-32.0); CHLORIDE,CL 107.0 mmol/L (98-107); CREATININE 1.14 mg/dL (0.51-1.17); EST CRCL DRUG DOSING (CG) 50.11 mL/min; GLUCOSE RANDOM 215.0 mg/dL (70-140); POTASSIUM,K 4.5 mmol/L (3.5-5.1); PROTEIN TOTAL,TP 6.6 g/dL (6.4-8.2); SODIUM,NA 144.0 mmol/L (136-145)
[2025-09-24 07:29] LABS: ESTIMATED GFR 62.0 mL/min (>=60)
[2025-09-25 07:12] LABS: ALANINE AMINOTRANSFERASE,ALT 35.0 U/L (14-63); ASPARTATE AMNIOTRANSFERASE,AST 25.0 U/L (15-37); BILIRUBIN TOTAL 1.5 mg/dL (0.2-1.0); BLOOD UREA NITROGEN,BUN 48.0 mg/dL (7-18); CARBON DIOXIDE,CO2 30.4 mmol/L (21.0-32.0); CHLORIDE,CL 107.0 mmol/L (98-107); CREATININE 1.07 mg/dL (0.51-1.17); EST CRCL DRUG DOSING (CG) 53.39 mL/min; GLUCOSE RANDOM 216.0 mg/dL (70-140); POTASSIUM,K 4.6 mmol/L (3.5-5.1); PROTEIN TOTAL,TP 6.3 g/dL (6.4-8.2); SODIUM,NA 145.0 mmol/L (136-145)
[2025-09-25 07:14] LABS: ESTIMATED GFR 67.0 mL/min (>=60)
[2025-09-25 13:43] VITALS: BP 155/69; PULSE 67
== END 2025-09-25 13:41 | disposition home or self-care (01) | DRG 291 ==
LOC: KA.ED 06:50 → KA.MS 08:15
PROVIDERS: ADMIT Internal Medicine; ATTEND Internal Medicine
DX: J44.9 Chronic obstructive pulmonary disease, unspecified (principal); I11.0 Hypertensive heart disease with heart failure; I50.33 Acute on chronic diastolic (congestive) heart failure; J96.01 Acute respiratory failure with hypoxia; J44.1 Chronic obstructive pulmonary disease with (acute) exacerbation; Z66 Do not resuscitate; H40.9 Unspecified glaucoma; Z88.5 Allergy status to narcotic agent; H91.90 Unspecified hearing loss, unspecified ear; H54.7 Unspecified visual loss; E86.0 Dehydration; M19.90 Unspecified osteoarthritis, unspecified site; Z86.16 Personal history of COVID-19; Z90.49 Acquired absence of other specified parts of digestive tract; Z86.711 Personal history of pulmonary embolism; Z95.2 Presence of prosthetic heart valve; Z88.8 Allergy status to other drugs, medicaments and biological substances; Z86.73 Personal history of transient ischemic attack (TIA), and cerebral infarction without residual deficits; Z79.899 Other long term (current) drug therapy; Z79.01 Long term (current) use of anticoagulants; Z79.52 Long term (current) use of systemic steroids; Z98.890 Other specified postprocedural states
CPT/HCPCS: 36415; 71045; 80053; 83605; 83735; 83880; 84484; 85025; 85027; 86140; 87040; 93010; 94640; 96361; 96374; 97110-GP; 97116-GP; 97161-GP; 99223-GT; 99232-GT; 99233-GT; 99239-GT; 99284; 99285-25; A9270-GY; J1938; J2919; J7030; Q3014